=== PATIENT | female | born 1990 | race Two or more races ===

== ENCOUNTER 2024-11-24 15:12 | Outpatient (AMB) | payer MEDICAID, SELFPAY ==
[2024-11-24 15:41] VITALS: BP 129/83; PULSE 93; RESP 17; TEMP 36.7; O2SAT 98; BMI 34.7
--- NOTE | 2024-11-24 15:41 | OBCLNT_ITS ---
Vital Signs 11/24/24 15:41 Height 1.65 m Height Method Measured Weight 94.858 kg Weight Measurement Method Standing Scale BMI 34.7 BP 129/83 Blood Pressure Source Automatic Cuff Blood Pressure Location Right Upper Arm Position Sitting Respiration 17 Pulse 93 Pulse Source Monitor Temp 98.1 F Temp Source Temporal Artery Scan Pulse Oximetry (%) 98 Oxygen Delivery Method Room Air Allergies/Home Meds Allergies & Medications Allergies No Known Allergies Allergy (Verified 11/24/24 15:42) Medication Reconciliation No Known Home Medications 11/24/24 [History Confirmed 11/24/24] Intake Visit Data Collection New Patient or Established: New Patient (never been to [facility]) Reason for Visit:: OBI Consent obtained for Telemed Visit: No Seen by Clinical Staff ONLY (RN/MA): No Radio News Anchor Required: No Do You Feel Safe at Home: Yes Authorities Contacted: N/A PCP or OBGYN visit in last 3 months: No Hx Now: Yes Are you currently on any form of Control: No Last menstrual period: 06/27/24 Pain Present Currently: Yes Pain Location: Head Pain scale:: 4 Smoking Status Smoking Status: Never smoker Questionnaires Covid-19 Vaccine Questionnaire Has patient been vacinated for Covid-19 Have you been vacinated for Covid-19: No PHQ-9 PHQ-2 Over the last 2 weeks, how often have you been bothered by any of the following problems? 1. Little interest or pleasure in doing things: not at all 2. Feeling down, depressed, or hopeless: not at all Total score: 0 PHQ-9 3. Trouble falling or staying asleep, or sleeping too much: Not at all 4. Feeling tired or having little energy: Not at all 5. Poor appetite or overeating: Not at all 6. Feeling bad about yourself - or that you are a failure or have let yourself or your family down: Not at all 7. Trouble concentrating on things, such as reading the newspaper or watching television: Not at all 8. Moving or speaking so slowly that other people could have noticed? - Or the opposite - being so fidgety or restless that you have been moving around a lot more than usual: not at all 9. Thoughts that you would be better off or of hurting yourself in some way: Not at all Total score: 0 If you checked off any problems, how difficult have these problems made it for you to do your work, take care of things at home, or get along with other people?: not difficult at all Source: Developed by Drs. Biju Monson, Jessica Bear, Mika Muñiz and colleagues, with an educational nina from [employer]. Social History Living Situation History Marital Status: Life Partner Lives With: Children Housing: House Tobacco History Smoking Status: Never smoker Alcohol History Alcohol Intake: Never Domestic Abuse History Do You Feel Safe at Home: Yes History of Present Illness HPI Narrative 33-year-old 6 para 3 for OBI. Patient's last period is 2024. Her due date based on LMP April 03, 2025. Patient has poor dates. Patient also reports that the clinic in [place] had given her a different due date. There is no ultrasound available. And no documentation in the chart of an ultrasound that was done. Labs were done. Patient is GC and Chlamydia negative. She had a UTI and a yeast infection both were treated early on. Hepatitis B negative, RPR nonreactive, rubella immune, HIV negative, O+, antibody screen negative, her platelets were 273. Her H&H was 12 and 37. Her cystic fibrosis screen was negative NIPT were negative. aFP was not done. Patient denies social habits. Denies existence of chronic illness. Patient had a tummy tuck. Previous GDM last . Patient had a 1 hour that was 93. A1c was 5.3 OB Initial Visit OB Flowsheet OB Flowsheet Initial Weight: Not Recorded Date -?-?-?-?-?-?-?-?-?-?-?-?- EGA Weight BP Alb Glu CTX Pres Fundal ht FHR Mov Dilation Station Effacement Hx Notes Visit Note 11/24/24 -?-?-?-?-?-?-?-?-?-?-?-?- 21w 3d 94.858 kg 129/83 absent unknown 22 154 active 33-year-old 6 para 3 for OBI. Patient has poor dates. She thinks her last period was from 12/25/2024. And this gives a due date April 03, 2025. Patient has been to a doctor in [place], no results. And then in [place]. Patient was given different dates both places no ultrasounds available. Labs were done and they are normal patient reports good movement. Denies any signs of labor. Denies bleeding, contractions, no leaking.History of tummy tuck Schedule M appointment today. Reviewed labs and chart with patient. Increase fluids. Continue vitamins. Return in 4 weeks OB check Menstrual History Menstrual reliability: definite Flow: normal Menstrual regularity: regular Monthly: Yes Age at menarche: 10 On control pills at conception: No Date of positive home test: 07/12/24 OB History : 6 Para: 3 Hx # Pregnancies: 1 Hx Total # of Abortions (Spontaneous & Elective): 2 # of Living Children: 3 Delivery History 1st : Child's name: BAY date: 09/06/03 sex: female Gestational age at delivery (weeks): 38 Delivery type: vaginal weight (lbs): 4082.331 g History of depression before or after : No 2nd : Child's name: DEE date: 02/01/09 sex: male Gestational age at delivery (weeks): 40 Delivery type: vaginal weight (lbs): 3628.739 g History of depression before or after : No 3rd : Child's name: MARGARET date: 10/25/14 sex: female Gestational age at delivery (weeks): 40 Delivery type: vaginal weight (lbs): 3628.739 g History of depression before or after : No Infection History & Risk Evaluation History of STDs: none HIV risk evaluation: low risk Hepatitis B risk evaluation: low risk Patient or partner has history of Genital Herpes: No Genetic Screening & History Genetic Screening/Teratology Counseling - Includes patient, baby's father, or anyone in either family with: 1. Patient's age 35 years or older as of estimated date of delivery: Yes 2. Thalassemia (English, Bahamian, Mediterranean, or Background); MCV less than 80: No 3. Neural Tube Defect (Meningomyelocele, Spina Bifida, or Anencephaly): No 4. Congenital Heart Defect: No 5. Down Syndrome: No 6. Virgilio-Sachs (Ashkenazi Orthodoxy, Cajun, Maldivian Hooker): No 7. Rodger Disease (Ashkenazi Orthodoxy): No 8. Familial Dysautonomia (Ashkenazi Orthodoxy): No 9. Sickle Cell Disease or Trait (): No 10. Hemophilia or other blood disorders: No 11. Muscular Dystrophy: No 12. Cystic Fibrosis: No 13. [place]'s Chorea: No 14. Mental Retardation/Autism: No 15. Other inherited genetic or chromosomal disorder: No 16. Maternal Metabolic Disorder (EG,TYPE 1 Diabetes, PKU): No 17. Patient or baby's father had a child with defects not listed above: No 18. Recurrent loss or a stillbirth: No 19. Medications (including supplements, vitamins, herbs or otc drugs)/illicit/recreational drugs/alcohol since last menstrual period: No 20. Any other: No Infection History 1. Live with someone with TB or exposed to TB: No 2. Rash or viral illness since last menstrual period: No 3. Hepatitis B,C: No Other (see comments) Source: [employer] Review of Systems Review of Systems Systems Reviewed: All systems reviewed, normal except as documented Exam General Limitations: no limitations General Appearance: alert, in no apparent distress, comfortable, cooperative, healthy appearing, well developed and well groomed Head Head exam: atraumatic, normocephalic and normal inspection Chest Chest inspection: Present normal inspection and symmetric chest wall rise Resp Respiratory exam: Present normal lung sounds bilaterally Card Cardiovascular exam: Present regular rate, normal rhythm and normal heart sounds Abdominal Abdominal exam: Present soft and normal bowel sounds Psych Psychiatric exam: Present normal affect and normal mood Office Procedures OB Clinic LOC & Office Proc's Nursing/Assessment Patient Status: Initial/New Patient OB Clinic Nursing Assessment: Medication Reconciliation, Update PMH in EMR and Vital Signs OB Clinic Coordination of Care: Complex Care and Chronic Disease 1-5, Consent,records obtained, informed consent, Education Simp Pt/Fam and 4+ Authorizations needed Special Needs: Heart tones New Patient Charge New Patient Point Assignment: [id number] New Patient Point Charge: MANAGER COSMETIC Level 4 ([id number]) Assessment & Plan Diagnosis / Problem List (1) Advanced maternal age (AMA) in : Status: Acute (2) Encounter for supervision of high risk in third trimester, antepartum: Status: Acute Additional Plan Schedule ultrasound with with MFM for dates and because of AMA. Discussed labs and dates with patient. Discussed labor precautions. Increase fluids. Continue vitamins. Advised patient to start GDM diet. And increase exercise. Return in 4 weeks OB check Follow Up: 4 Weeks (obc)
== END 2024-11-24 15:57 | disposition home or self-care (01) ==
LOC: HODSOBC 15:12
PROVIDERS: PCP Advanced Practice Midwife; Referring Provider Advanced Practice Midwife; Supervising Provider Advanced Practice Midwife; Visit Provider Advanced Practice Midwife
DX: O09.522 Supervision of elderly multigravida, second trimester (principal); O09.292 Supervision of pregnancy with other poor reproductive or obstetric history, second trimester; O26.842 Uterine size-date discrepancy, second trimester; O09.212 Supervision of pregnancy with history of pre-term labor, second trimester; Z87.59 Personal history of other complications of pregnancy, childbirth and the puerperium; Z3A.21 21 weeks gestation of pregnancy
CPT/HCPCS: 99204; G0463

== ENCOUNTER 2024-12-23 15:16 | Outpatient (AMB) | payer MEDICAID, SELFPAY ==
[2024-12-23 15:22] VITALS: BP 118/77; PULSE 98; RESP 7; TEMP 36.5; O2SAT 97; BMI 35.2
--- NOTE | 2024-12-23 15:22 | OBCLNT_ITS ---
Vital Signs 12/23/24 15:22 Height 1.65 m Height Method Measured Weight 95.821 kg Weight Measurement Method Standing Scale BMI 35.2 BP 118/77 Blood Pressure Source Automatic Cuff Blood Pressure Location Right Upper Arm Position Sitting Respiration 7 L Pulse 98 Pulse Source Monitor Temp 97.7 F Temp Source Temporal Artery Scan Pulse Oximetry (%) 97 Oxygen Delivery Method Room Air Allergies/Home Meds Allergies & Medications Allergies No Known Allergies Allergy (Verified 12/23/24 15:23) Medication Reconciliation No Known Home Medications 11/24/24 [History Confirmed 12/23/24] Intake Visit Data Collection New Patient or Established: Established Patient (seen at [facility] within 3 years) Reason for Visit:: OBC Consent obtained for Telemed Visit: No Seen by Clinical Staff ONLY (RN/MA): No Director Traffic And Planning Required: No Do You Feel Safe at Home: Yes Authorities Contacted: N/A PCP or OBGYN visit in last 3 months: Yes Date of Last PCP or OBGYN visit: 11/24/24 Hx Now: Yes Are you currently on any form of Control: No Pain Present Currently: No Pain Scale Used: Wood-Penn/Numerical Pain scale:: 0 Smoking Status Smoking Status: Never smoker Questionnaires Covid-19 Vaccine Questionnaire Has patient been vacinated for Covid-19 Have you been vacinated for Covid-19: No PHQ-9 PHQ-2 Over the last 2 weeks, how often have you been bothered by any of the following problems? 1. Little interest or pleasure in doing things: not at all PHQ-9 8. Moving or speaking so slowly that other people could have noticed? - Or the opposite - being so fidgety or restless that you have been moving around a lot more than usual: not at all Source: Developed by Drs. Biju Monson, Jessica Bear, Mika Muñiz and colleagues, with an educational nina from [employer]. Social History Living Situation History Lives With: Children Housing: House Tobacco History Smoking Status: Never smoker Alcohol History Alcohol Intake: Never Domestic Abuse History Do You Feel Safe at Home: Yes Care OB Visit Log OB Flowsheet Initial Weight: Not Recorded Date -?-?-?-?-?-?-?-?-?-?-?-?- EGA Weight BP Alb Glu CTX Pres Fundal ht FHR Mov Dilation Station Effacement Hx Notes Visit Note 11/24/24 -?-?-?-?-?-?-?-?-?-?-?-?- 21w 3d 94.858 kg 129/83 absent unknown 22 154 active 33-year-old 6 para 3 for OBI. Patient has poor dates. She thinks her last period was from 12/25/2024. And this gives a due date April 03, 2025. Patient has been to a doctor in [place], no results. And then in [place]. Patient was given different dates both places no ultrasounds available. Labs were done and they are normal patient reports good movement. Denies any signs of labor. Denies bleeding, contractions, no leaking.History of dwight motley Schedule MFM appointment today. Reviewed labs and chart with patient. Increase fluids. Continue vitamins. Return in 4 weeks OB check 12/23/24 -?-?-?-?-?-?-?-?-?-?-?-?- 25w 4d 95.821 kg 118/77 absent unknown 24 145 active Reports good movement. Denies any leaking, bleeding, contractions. 3rd tri lab, discuss ptl precaution, f/u mfm referral, 3rd tri lab, discuss ptl pre caution, f/u mfm referral, rtc 4 week obc . pt referred to [facility]RREZ[facility] Calculator Estimated Delivery Date Method Current WG Current Estimate 04/03/25 LMP (Uncertain) 25w 4d Notes Visit Date: 11/24/24 Last Updated by: Lo Matta, YAZM 33 yo lmp 06/27/24. EDC: 04/03/25. Poor dates. GC/CT-, + yeast/treated, UTI/Ecoli [place], RPR::NR, TSH wnl, HBSAG-, rub imm, O+/abs-, HIV-, HC-, CF-,NIPT-/girl,pap-,UT-, Office Procedures OB Clinic LOC & Office Proc's Nursing/Assessment Patient Status: Established Patient OB Clinic Nursing Assessment: Medication Reconciliation, Update PMH in EMR and Vital Signs OB Clinic Coordination of Care: Complex Care and Chronic Disease 1-5, Consent,records obtained, informed consent and Education Simp Pt/Fam Special Needs: Heart tones Established Patient Charge Established Patient Point Assignment: 105 Established Patient Point Charge: EP Level 3 (80-115) Assessment & Plan Diagnosis / Problem List (1) Encounter for supervision of high risk in second trimester, antepartum: Status: Acute (2) Advanced maternal age (AMA) in : Status: Acute Plan 3rd trimester lab today, f/u on MFM pending sono, discuss ptl precaution, continue pnv, fluids, rtc 4 week OBC Additional Plan Follow Up: 4 Weeks (obc)
== END 2024-12-23 15:48 | disposition home or self-care (01) ==
LOC: HODSOBC 15:16
PROVIDERS: Supervising Provider Advanced Practice Midwife; Visit Provider Advanced Practice Midwife
DX: O09.522 Supervision of elderly multigravida, second trimester (principal); Z3A.25 25 weeks gestation of pregnancy
CPT/HCPCS: 99213; G0463

== ENCOUNTER 2025-01-12 14:55 | Outpatient (AMB) | payer MEDICAID, SELFPAY ==
[2025-01-12 15:03] VITALS: BP 136/85; PULSE 97; RESP 16; TEMP 36.2; O2SAT 98; BMI 35.4
--- NOTE | 2025-01-12 15:03 | AMB.OBVISIT ---
Vital Signs 01/12/25 15:03 Height 1.65 m Height Method Stated Weight 96.615 kg Weight Measurement Method Standing Scale BMI 35.4 BP 136/85 H Blood Pressure Source Automatic Cuff Blood Pressure Location Left Upper Arm Position Right Lateral Respiration 16 Pulse 97 Pulse Source Monitor Temp 97.2 F Temp Source Oral Pulse Oximetry (%) 98 Oxygen Delivery Method Room Air Allergies/Home Meds Allergies & Medications Allergies No Known Allergies Allergy (Verified 01/12/25 15:06) Medication Reconciliation No Known Home Medications 11/24/24 [History Confirmed 01/12/25] Intake Visit Data Collection New Patient or Established: Established Patient (seen at [facility] within 3 years) Reason for Visit:: OBC Seen by Clinical Staff ONLY (RN/MA): No Strip Cutting Machine Operator Required: No Do You Feel Safe at Home: Yes Authorities Contacted: N/A PCP or OBGYN visit in last 3 months: Yes Date of Last PCP or OBGYN visit: 12/23/24 Hx Now: Yes Are you currently on any form of Control: No Pain Present Currently: No Pain Scale Used: Wood-Penn/Numerical Pain scale:: 0 Smoking Status Smoking Status: Never smoker Questionnaires Covid-19 Vaccine Questionnaire Has patient been vacinated for Covid-19 Have you been vacinated for Covid-19: Yes PHQ-9 PHQ-2 Over the last 2 weeks, how often have you been bothered by any of the following problems? 1. Little interest or pleasure in doing things: not at all 2. Feeling down, depressed, or hopeless: not at all Total score: 0 PHQ-9 3. Trouble falling or staying asleep, or sleeping too much: Not at all 4. Feeling tired or having little energy: Not at all 5. Poor appetite or overeating: Not at all 6. Feeling bad about yourself - or that you are a failure or have let yourself or your family down: Not at all 7. Trouble concentrating on things, such as reading the newspaper or watching television: Not at all 8. Moving or speaking so slowly that other people could have noticed? - Or the opposite - being so fidgety or restless that you have been moving around a lot more than usual: not at all 9. Thoughts that you would be better off or of hurting yourself in some way: Not at all Total score: 0 If you checked off any problems, how difficult have these problems made it for you to do your work, take care of things at home, or get along with other people?: not difficult at all Source: Developed by Drs. Biju Monson, Jessica Bear, Mika Muñiz and colleagues, with an educational nina from [employer]. Depression screen completed yes Social History Living Situation History Lives With: Children Housing: House Tobacco History Smoking Status: Never smoker Second Hand Smoke Exposure: No Alcohol History Alcohol Intake: Never Domestic Abuse History Do You Feel Safe at Home: Yes Care OB Visit Log OB Flowsheet Initial Weight: Not Recorded Date <del>?</del> EGA Weight BP Alb Glu CTX Pres Fundal ht FHR Mov Dilation Station Effacement Hx Notes Visit Note 11/24/24 <del>?</del> 21w 3d 94.858 kg 129/83 absent unknown 22 154 active 33-year-old 6 para 3 for OBI. Patient has poor dates. She thinks her last period was from 12/25/2024. And this gives a due date April 03, 2025. Patient has been to a doctor in [place], no results. And then in [place]. Patient was given different dates both places no ultrasounds available. Labs were done and they are normal patient reports good movement. Denies any signs of labor. Denies bleeding, contractions, no leaking.History of dwight tuck Schedule MFM appointment today. Reviewed labs and chart with patient. Increase fluids. Continue vitamins. Return in 4 weeks OB check 12/23/24 <del>?</del> 25w 4d 95.821 kg 118/77 absent unknown 24 145 active Reports good movement. Denies any leaking, bleeding, contractions. 3rd tri lab, discuss ptl precaution, f/u mfm referral, 3rd tri lab, discuss ptl precaution, f/u mfm referral, rtc 4 week obc . pt referred to [facility] 01/12/25 <del>?</del> 28w 3d 96.615 kg 136/85 absent unknown 28 145 active Reports good movement. Denies leaking, bleeding, contractions. No OB discomforts at this time. Follow-up maternal- medicine scheduled for January 20 Discussed elevated 1 hour GTT. 3-hour GTT today. Discussed diet and weight gain,. Walk 40 minutes a day. labor precautions reviewed. Increase fluids. Return in 3 weeks OB check. Patient has MFM appointment January 20 SARAI Calculator Estimated Delivery Date Method Current WG Current Estimate 04/03/25 LMP (Uncertain) 28w 3d Notes Visit Date: 01/12/25 Last Updated by: Lo Matta CNM 01/12: 1 hr gtt: 168, A1c: 5.6, rpr;;nr, Visit Date: 11/24/24 Last Updated by: Lo Matta CNM 33 yo lmp 06/27/24. EDC: 04/03/25. Poor dates. GC/CT-, + yeast/treated, UTI/Ecoli [place], RPR::NR, TSH wnl, HBSAG-, rub imm, O+/abs-, HIV-, HC-, CF-,NIPT-/girl,pap-,[place]-, Office Procedures OB Clinic LOC & Office Proc's Nursing/Assessment Patient Status: Established Patient OB Clinic Nursing Assessment: Update PMH in EMR and Vital Signs OB Clinic Coordination of Care: Education Complex Pt/Fam, Consent,records obtained, informed consent, Lab and Imaging orders, Results/Orders obtained and Staff clarify orders Special Needs: Heart tones Established Patient Charge Established Patient Point Assignment: 110 Established Patient Point Charge: EP Level 3 (80-115) Assessment & Plan Diagnosis / Problem List (1) Encounter for supervision of high risk in second trimester, antepartum: Status: Acute (2) Advanced maternal age (AMA) in : Status: Acute Plan 3-hour GTT. Discussed diet and weight gain. Walk 40 minutes a day. Increase fluids. Discussed labor precautions. Patient has an ultrasound with Dr. Hermosillo scheduled for January 20, 2025. Increase fluids and return in 3 weeks for recheck Additional Plan Follow Up: 3 Weeks (obc)
== END 2025-01-12 15:39 | disposition home or self-care (01) ==
LOC: HODSOBC 14:55
PROVIDERS: Supervising Provider Advanced Practice Midwife; Visit Provider Advanced Practice Midwife
DX: O09.523 Supervision of elderly multigravida, third trimester (principal); Z3A.28 28 weeks gestation of pregnancy
CPT/HCPCS: 99213; G0463

== ENCOUNTER 2025-02-02 14:40 | Outpatient (AMB) | payer MEDICAID, SELFPAY ==
[2025-02-02 14:51] VITALS: BP 128/86; PULSE 81; RESP 16; TEMP 36.6; O2SAT 98; BMI 36.8
--- NOTE | 2025-02-02 14:51 | AMB.OBVISIT ---
Vital Signs 02/02/25 14:51 Height 1.65 m Height Method Stated Weight 100.301 kg Weight Measurement Method Standing Scale BMI 36.8 BP 128/86 H Blood Pressure Source Automatic Cuff Blood Pressure Location Left Upper Arm Position Sitting Respiration 16 Pulse 81 Pulse Source Monitor Temp 97.8 F Temp Source Oral Pulse Oximetry (%) 98 Oxygen Delivery Method Room Air Allergies/Home Meds Allergies & Medications Allergies No Known Allergies Allergy (Verified 02/02/25 14:53) Medication Reconciliation blood sugar diagnostic (Blood Glucose Test strips) #10 ea 02/02/25 [Rx] blood sugar diagnostic (Blood Glucose Test strips) #50 ea 02/02/25 [Rx] blood-glucose meter #1 ea 02/02/25 [Rx] lancets #100 ea 02/02/25 [Rx] lancets #100 ea 02/02/25 [Rx] Intake Visit Data Collection New Patient or Established: Established Patient (seen at [facility] within 3 years) Reason for Visit:: CARE Seen by Clinical Staff ONLY (RN/MA): No Radiologic Electronic Specialist Required: No Do You Feel Safe at Home: Yes Authorities Contacted: N/A PCP or OBGYN visit in last 3 months: Yes Hx Now: Yes Are you currently on any form of Control: No Pain Present Currently: No Pain Scale Used: Wood-Penn/Numerical Pain scale:: 0 Smoking Status Smoking Status: Never smoker Questionnaires Covid-19 Vaccine Questionnaire Has patient been vacinated for Covid-19 Have you been vacinated for Covid-19: No PHQ-9 PHQ-2 Over the last 2 weeks, how often have you been bothered by any of the following problems? 1. Little interest or pleasure in doing things: not at all 2. Feeling down, depressed, or hopeless: not at all Total score: 0 PHQ-9 3. Trouble falling or staying asleep, or sleeping too much: Not at all 4. Feeling tired or having little energy: Not at all 5. Poor appetite or overeating: Not at all 6. Feeling bad about yourself - or that you are a failure or have let yourself or your family down: Not at all 7. Trouble concentrating on things, such as reading the newspaper or watching television: Not at all 8. Moving or speaking so slowly that other people could have noticed? - Or the opposite - being so fidgety or restless that you have been moving around a lot more than usual: not at all 9. Thoughts that you would be better off or of hurting yourself in some way: Not at all Total score: 0 Source: Developed by Drs. Biju Monson, Jessica Bear, Mika Muñiz and colleagues, with an educational nina from [employer]. Depression screen completed yes Social History Living Situation History Lives With: Children Housing: House Tobacco History Smoking Status: Never smoker Second Hand Smoke Exposure: No Alcohol History Alcohol Intake: Never Domestic Abuse History Do You Feel Safe at Home: Yes Care OB Visit Log OB Flowsheet Initial Weight: Not Recorded Date <del>?</del> EGA Weight BP Alb Glu CTX Pres Fundal ht FHR Mov Dilation Station Effacement Hx Notes Visit Note 11/24/24 <del>?</del> 21w 3d 94.858 kg 129/83 absent unknown 22 154 active 33-year-old 6 para 3 for OBI. Patient has poor dates. She thinks her last period was from 12/25/2024. And this gives a due date April 03, 2025. Patient has been to a doctor in [place], no results. And then in [place]. Patient was given different dates both places no ultrasounds available. Labs were done and they are normal patient reports good movement. Denies any signs of labor. Denies bleeding, contractions, no leaking.History of tumcorazon anthonyck Schedule MFM appointment today. Reviewed labs and chart with patient. Increase fluids. Continue vitamins. Return in 4 weeks OB check 12/23/24 <del>?</del> 25w 4d 95.821 kg 118/77 absent unknown 24 145 active Reports good movement. Denies any leaking, bleeding, contractions. 3rd tri lab, discuss ptl precaution, f/u mfm referral, 3rd tri lab, discuss ptl precaution, f/u mfm referral, rtc 4 week obc . pt referred to [facility] 01/12/25 <del>?</del> 28w 3d 96.615 kg 136/85 absent unknown 28 145 active Reports good movement. Denies leaking, bleeding, contractions. No OB discomforts at this time. Follow-up maternal- medicine scheduled for January 20 Discussed elevated 1 hour GTT. 3-hour GTT today. Discussed diet and weight gain,. Walk 40 minutes a day. labor precautions reviewed. Increase fluids. Return in 3 weeks OB check. Patient has M appointment January 20 02/02/25 <del>?</del> 31w 3d 100.301 kg 128/86 absent cephalic 31 145 active Fetus active. Denies contractions. Denies leaking. Denies bleeding. Patient had a abnormal 1 hour GTT. And her 3-hour is also elevated. The fasting was normal and then the 1 in 2-hour high. Patient has a follow-up maternal- medicine sono in February Ordered glucometer lancets and test strips. I reviewed GDM diet with patient. And reviewed logging her glucose results. Walk 40 minutes a day. Schedule weekly NST BPP for AMA and GDM. Discussed ultrasound with patient. The baby is growing in the 99th percentile. Increase fluids. Kick count twice a day. Return in 2 weeks for OB check Ordered glucometer lancets and test strips. I reviewed GDM diet with patient. And reviewed logging her glucose results. Walk 40 minutes a day. Schedule weekly NST BPP for AMA and GDM. Discussed ultrasound with patient. The baby is growing in the 99th percentile. Increase fluids. Kick count twice a day. Return in 2 weeks for OB check. TDAP [place] SARAI Calculator Estimated Delivery Date Method Current WG Current Estimate 04/03/25 Ultrasound #1 31w 3d Other Estimates 04/03/25 LMP (Uncertain) 31w 3d 04/03/25 Manual 31w 3d final sarai 04/03/25 Notes Visit Date: 02/02/25 Last Updated by: Lo Matta CNM 3 hr gtt: 1hr and 2 hr high. sono . EFW 99%, GDM diet Visit Date: 01/12/25 Last Updated by: Lo Matta CNM 01/12: 1 hr gtt: 168, A1c: 5.6, rpr;;nr, Visit Date: 11/24/24 Last Updated by: Lo Matta, CNM 33 yo lmp 06/27/24. EDC: 04/03/25. Poor dates. GC/CT-, + yeast/treated, UTI/Ecoli TX, RPR::NR, TSH wnl, HBSAG-, rub imm, O+/abs-, HIV-, HC-, CF-,NIPT-/girl,pap-,UT-, Office Procedures OBC Clinic LOC & Office Proc's Nursing/Assessment Patient Status: Established Patient OB Clinic Nursing Assessment: Medication Reconciliation, Update PMH in EMR and Vital Signs OB Clinic Coordination of Care: AMA, Complex Care and Chronic Disease 1-5, Consent,records obtained, informed consent, Education Simp Pt/Fam, 1 Ins Authorization, Lab and Imaging orders, Results/Orders obtained and Staff clarify orders Special Needs: Heart tones Established Patient Charge Established Patient Point Assignment: 170 Established Patient Point Charge: EP Level 5 (160-above) Assessment & Plan Diagnosis / Problem List (1) Encounter for supervision of high risk in third trimester, antepartum: Status: Acute (2) Diet controlled gestational diabetes mellitus (GDM) in third trimester: Status: Acute Plan Discussed 3-hour GTT. I ordered lancets, meter, test strips to the pharmacy. Reviewed GDM diet with patient. Discussed testing 4 times a day and I also discussed the parameters for normal. Patient to walk 40 minutes a day. I scheduled weekly NST BPP. Discussed kick count twice a day. Continue prenatals. Increase fluids. Return in 2 weeks OB check Additional Plan Follow Up: 2 Weeks (obc/TDAP)
== END 2025-02-02 15:20 | disposition home or self-care (01) ==
LOC: HODSOBC 14:40
PROVIDERS: Supervising Provider Advanced Practice Midwife; Visit Provider Advanced Practice Midwife
DX: O09.523 Supervision of elderly multigravida, third trimester (principal); O09.893 Supervision of other high risk pregnancies, third trimester; O24.410 Gestational diabetes mellitus in pregnancy, diet controlled; Z3A.31 31 weeks gestation of pregnancy
CPT/HCPCS: 99215; G0463

== ENCOUNTER 2025-02-02 15:43 | Observation (INO) | payer MEDICAID, SELFPAY ==
--- NOTE | 2025-02-02 15:35 | XR_ITS ---
Examination: Complete OB ultrasound greater than 14 weeks Date and time of exam: February 02, 2025, 1708 hrs. Indications: Onset vaginal bleeding today Findings: Viable intrauterine single fetus with single amniotic sac presentation cephalic Cardiac motion 144 BPM Placenta fundal posterior grade 2 Umbilical cord insertion seen Amniotic fluid index 6.1 cm Cervix 4.4 cm Ovaries obscured by the fetus. Composite estimated gestational age based on BPD, head circumference, abdominal circumference, femur length is 35 weeks 1 day Estimated weight 2621.3 g. Survey of intracranial anatomy, spinal anatomy, abdominal anatomy, four-chamber heart performed with no abnormalities identified. Impression: Viable intrauterine gestation cephalic presentation.
--- NOTE | 2025-02-02 15:35 | XR_ITS ---
Examination: Biophysical profile, ultrasound Date and time of exam: February 02, 2025, 1722 hrs. Indications: Labor evaluation today, vaginal bleeding Technique: Multiple transabdominal sonographic images of the pelvis abdomen obtained. Attention is directed to the breathing movement, gross body movement, amniotic fluid volume and tone. Findings: Amniotic fluid index 6.5 cm Total biophysical profile is 8 of 8. breathing movement is 2. Gross body movement is 2. tone is 2. Qualitative amniotic fluid volume is 2 Impression: Biophysical profile is 8 of 8.
[2025-02-02 16:05] VITALS: BP 135/86; PULSE 80; RESP 16; RESP 98; TEMP 36.8; BMI 36.6
[2025-02-02 16:07] VITALS: BP 135/86; PULSE 80
[2025-02-02 17:39] VITALS: BP 161/75; PULSE 79
[2025-02-02 17:41] VITALS: BP 124/59; PULSE 84
[2025-02-02 18:13] VITALS: BP 127/60; PULSE 91
== END 2025-02-02 18:45 | disposition home or self-care (01) ==
PROVIDERS: Admitting Provider Obstetrics & Gynecology; PCP Family Medicine; Visit Provider Obstetrics & Gynecology
DX: O46.93 Antepartum hemorrhage, unspecified, third trimester (principal); Z3A.35 35 weeks gestation of pregnancy
CPT/HCPCS: 59025; 59899; 76805; 76819

== ENCOUNTER 2025-02-06 19:22 | Observation (INO) | payer MEDICAID, SELFPAY ==
[2025-02-06] VITALS (18 sets, daily range): BP systolic 120–144; BP diastolic 55–107; PULSE 79–99; RESP 18–99; TEMP 37; O2SAT 96–99; BMI 38.7
[2025-02-06 20:16] LABS: Collection Type, Urine Clean Catch
[2025-02-06 20:25] LABS: Amorphous Crystals,Urine Present (Absent); Bacteria,Urine 4+; Bilirubin,Urine Negative (Negative); Blood,Urine 2+ (Negative); Clarity,Urine Clear (Clear/Hazy); Color,Urine Lt-Yellow (Lt Yel-Yel); Glucose, Urine Negative (Negative); Ketones,Urine Negative (Negative); Leukocyte Esterase,Urine Positive (Negative); Nitrite,Urine Negative (Negative); PH,Urine 7.0 (5.0-7.0); Protein,Urine Trace (Neg - Trace); RBC,Urine 63 /hpf (0-3); Specific Gravity,Urine 1.016 (1.001-1.035); Squamous Epithelial Cell,Urine 2 /hpf (0-5); Urobilinogen,Urine Negative mg/dL (0.0-1.0); WBC,Urine 3 /hpf (0-5)
--- NOTE | 2025-02-07 00:03 | PD.LDPN ---
Documentation for date of: 02/07/25 OB Labor Progress Note Pelvic Exam Amniotic membrane status: Intact Contractions Monitor mode: External Contraction frequency: 0 Contraction intensity: Mild Status status: Category l Assessment and Plan Comments: Triage Note Lucina is a 34yo with SIUP at 32&1wk presenting to L&D for concerns that her UTI medicine isn't working. She notes that when she voids, it is bloody. She was prescribed macrobid by NAYANA Matta, but has only been taking it once daily (she was confused regarding the instructions). She notes no painful/regular ctx, no vaginal bleeding, no loss of fluid. Normal movement. PMhx/PNC significant for: -AMA -Current BMI 38.7 -A1GDM -UTI ROS negative other than what was described above. Vitals wnl, afebrile General: well developed, well nourished, no acute distress, conversant Cardiac: normal heart rate Lungs: breathing without distress Abdomen: soft, gravid, non-tender, no rebound or guarding Extremities: no edema BLE NST: Reactive, +accels, no decels, mod [place]: no regular ctx pattern Labs: Urinalysis shows 63 RBC, 3 WBC, 4+ bacteria, +LE, 2 squam Assessment: Lucina is a 34yo with SIUP at 32&1wk with hematuria related to inadequately treated UTI. Reassuring assessment. Vitals wnl, benign exam. Plan: -Rx keflex 500mg PO QID x 7 days sent to pharmacy. Take abx as prescribed and the full course. -Urine culture ordered, pending. Patient instructed to discuss result with NAYANA Matta at next follow up visit. -Follow up at routine OB visit as scheduled -Discussed return precautions including those for sx concerning for pyelonephritis. Verónica Martinez MD
== END 2025-02-06 21:08 | disposition home or self-care (01) ==
LOC: S4SX 20:50 → S4NX 21:08
PROVIDERS: Admitting Provider Obstetrics & Gynecology; Visit Provider Advanced Practice Midwife
DX: O23.43 Unspecified infection of urinary tract in pregnancy, third trimester (principal); N39.0 Urinary tract infection, site not specified; Z3A.32 32 weeks gestation of pregnancy
CPT/HCPCS: 59899; 81001; 87077; 87086; 87186

== ENCOUNTER 2025-02-18 15:17 | Outpatient (RCR) | payer MEDICAID, SELFPAY ==
--- NOTE | 2025-02-11 15:47 | XR_ITS ---
EXAMINATION: Biophysical profile Date and time: February 11, 2025, 1553 hours INDICATIONS: Diagnosis advanced maternal age, diagnosis gestational diabetes TECHNIQUE AND FINDINGS: Assessment body movement breathing motion and tone and JESUSITA obtained Body movement 2, breathing movements 2 tone 2 JESUSITA 2 Amniotic fluid index 19.4 cm IMPRESSION: Biophysical profile 8 of 8
[2025-02-11 16:33] VITALS: BP 126/84; PULSE 97; RESP 16; TEMP 36.7
--- NOTE | 2025-02-18 15:34 | XR_ITS ---
Examination: Biophysical profile, ultrasound Date and time of exam: February 18, 2025 1538 hours INDICATIONS: Diagnosis advanced maternal age, diagnosis gestational diabetes Technique: Multiple transabdominal sonographic images of the pelvis abdomen obtained. Attention is directed to the breathing movement, gross body movement, amniotic fluid volume and tone. Findings: Amniotic fluid index 11.2 cm Total biophysical profile is 8 of 8. breathing movement is 2. Gross body movement is 2. tone is 2. Qualitative amniotic fluid volume is 2 Impression: Biophysical profile is 8 of 8.
[2025-02-18 16:13] VITALS: BP 143/89; PULSE 95; RESP 20
== END 2025-02-18 23:59 | disposition home or self-care (01) ==
LOC: S4S1 15:17
PROVIDERS: PCP Family Medicine; Referring Provider Advanced Practice Midwife; Visit Provider Advanced Practice Midwife
DX: O24.410 Gestational diabetes mellitus in pregnancy, diet controlled (principal); O09.93 Supervision of high risk pregnancy, unspecified, third trimester; Z3A.34 34 weeks gestation of pregnancy
CPT/HCPCS: 59025; 76819

== ENCOUNTER 2025-02-18 17:55 | Inpatient (IN) | payer MEDICAID, SELFPAY ==
[2025-02-18] VITALS (54 sets, daily range): BP systolic 0–195; BP diastolic 0–93; PULSE 79–100; RESP 16; TEMP 36.9; O2SAT 98–100; BMI 38.6
--- NOTE | 2025-02-18 18:43 | PD.LDHP ---
Documentation for date of: 02/18/25 OB Labor/Induct. HPI History of Present Illness Chief complaint: elevated BP during NST/BPP : 6 Term pregnancies: 3 pregnancies: 0 Living children: 3 History of Abortions: Spontaneous and Elective: 2 History of sections: No History of : No SARAI: 04/03/25 Gestational Age (weeks): 34 Gestational Age (days): 1 History of present illness: plan observation and evaluation for preeclampsia in 34 years old at 34.1 weeks with GDM diet controlled , no headache or blurry vision or epigastric pain NST is reactive and BPP is 8/8 today History of Present Adequate Care: Yes Obstetrical complications: gestational diabetes and other (advanced maternal age ) Review of Systems Review of Systems Systems Reviewed: All systems reviewed, normal except as documented Past Medical History Surgical History SURGICAL: Negative Section Social History SMOKING STATUS: Never smoker SECOND HAND EXPOSURE: No Meds Home Medications and Allergies Home Medications ?Medication ?Instructions ?Recorded ?Confirmed ?Type vits no.126-ferrous fum 1 tab PO QDAY 02/02/25 02/06/25 History 28 mg iron-folic acid 800 mcg tablet (Classic ) Allergies Allergy/AdvReac Type Severity Reaction Status Date / Time No Known Allergies Allergy Verified 02/06/25 19:33 OB Exam Physical Exam Vital signs: Pulse BP 87 159/78 H 02/18/25 18:39 02/18/25 18:39 Narrative: Alert and oriented x 3 no shortness of breath Pain no chest pain no palpitations Chest clear bilaterally no additional sounds, no wheezing no rales CVS regular rate and rhythm No CVAT Abdomen nontender, normal bowel sounds No guarding no rigidity No hernias Ob exam : Size equal to dates uterus non tender Occasional/ contractions non tender FHR is category 1 feta presentation is vertex Detailed Labor and Delivery Exam Membranes: intact monitor accelerations: 15x15 monitor decelerations: None residential variability: Average (6-10) Tachysystole: No OB Results Labs 02/18/25 21:23 02/18/25 18:44 Labs: ordered labs for preeclampsia evaluation started betamethasone 12 mgm i/m q 24 hours will start labetalol 100 mgm po BID kept for 23 hour observation OB Assessment & Plan Assessment and Plan (1) Diet controlled gestational diabetes mellitus (GDM) in third trimester: Status: Acute (2) Encounter for supervision of high risk in third trimester, antepartum: Status: Acute (3) Advanced maternal age (AMA) in : Status: Acute (4) Gestational hypertension affecting sixth : Status: Acute (5) Pre-eclampsia during in third trimester, antepartum: Status: Acute Additional Plan Induction method: other Plan: other (magnesium sulphate for seizure prophylaxis ) Additional Plan Comment: US for presentationa nd EFW and then will decide to proceed with induction of labor now or after the second betamethasone based on patients BP control / she has no headache or blurry vision / will review labs and patients vital signs /review for induction
[2025-02-18] MEDS: BETAMET ACET/BETAMET NA PH (Celestone) 6 MG/ML VIAL 12 MG IM (18:47)
[2025-02-18 19:01] LABS: Collection Type, Urine Clean Catch
[2025-02-18 19:02] LABS: Basophils # (Auto) 0.0 Thou/mm3 (0.0-0.2); Basophils % (Auto) 0 % (0-2.5); Eosinophils # (Auto) 0.1 Thou/mm3 (0.0-0.5); Eosinophils % (Auto) 1 % (0-10); Hematocrit 30.4 % (36.0-46.0); Hemoglobin 9.5 g/dL (12.0-16.0); Immature Granulocytes Auto 0.15 Thou/mm3 (0.00-0.00); Lymphocytes # (Auto) 2.6 Thou/mm3 (1.0-4.8); Lymphocytes % (Auto) 24 % (10-50); Mean Corpuscular HGB Conc 31.3 g/dl (31.0-37.0); Mean Corpuscular Hemoglobin 24.2 pg (25.0-35.0); Mean Corpuscular Volume 78 fL (80-100); Monocytes # (Auto) 0.6 Thou/mm3 (0.0-0.8); Monocytes % (Auto) 6 % (0-12); Neutrophils # (Auto) 7.4 Thou/mm3 (1.8-7.7); Neutrophils % (Auto) 68 % (37-80); Nucleated Red Blood Cell # 0.00 Thou/mm3 (0.00-0.00); Nucleated Red Blood Cell % 0 /100 WBC (0); Platelet Count 202 Thou/mm3 (140-440); RDW Standard Deviation 40.6 fL (36.4-46.3); Red Blood Count 3.92 Miln/mm3 (4.00-5.20); White Blood Count 10.8 Thou/mm3 (3.6-11.0)
[2025-02-18 19:31] LABS: Bacteria,Urine Rare; Bilirubin,Urine Negative (Negative); Blood,Urine 1+ (Negative); Clarity,Urine Clear (Clear/Hazy); Color,Urine Colorless (Lt Yel-Yel); Glucose, Urine Negative (Negative); Ketones,Urine Negative (Negative); Leukocyte Esterase,Urine Positive (Negative); Nitrite,Urine Negative (Negative); PH,Urine 7.0 (5.0-7.0); Protein,Urine Negative (Neg - Trace); RBC,Urine 6 /hpf (0-3); Specific Gravity,Urine 1.003 (1.001-1.035); Squamous Epithelial Cell,Urine 1 /hpf (0-5); Urobilinogen,Urine Negative mg/dL (0.0-1.0); WBC,Urine 1 /hpf (0-5)
[2025-02-18 19:32] LABS: Fibrinogen 560 mg/dL (175-375); INR 0.9 (0.9-1.3); Partial Thromboplastin Time 24.6 Seconds (22.0-36.0); Prothrombin Time 9.6 Seconds (9.0-12.2)
[2025-02-18 19:36] LABS: Alanine Aminotransferase < 7 U/L (10-49); Albumin, Serum 3.8 gm/dL (3.5-5.0); Albumin/Globulin Ratio 1.7 (1.2-2.2); Alkaline Phosphatase 146 U/L (46-116); Anion Gap 12 (7-16); Aspartate Amino Transferase 15 U/L (0-34); BUN/Creatinine Ratio 16 Ratio (12-20); Bilirubin,Total 0.3 mg/dL (0.3-1.2); Blood Urea Nitrogen 8 mg/dL (9-23); Calcium 9.0 mg/dL (8.3-10.6); Calcium (Corrected) 9.2 mg/dL (8.5-10.1); Carbon Dioxide 23.3 mMol/L (20.0-31.0); Chloride 105 mMol/L (98-107); Creatinine (Component) 0.5 mg/dL (0.6-1.3); Estimated Creatinine Clearance 180.8 mL/min (>60); Globulin 2.2 gm/dL (2.3-3.5); Glucose 75 mg/dL (74-106); LDH (Lactate Dehydrogenase) 155 U/L (120-246); Osmolality,Calculated 276 (275-295); Potassium 3.6 mMol/L (3.4-5.1); Sodium 140 mMol/L (136-145); Total Protein 6.0 gm/dL (5.7-8.2); Uric Acid 3.0 mg/dL (3.1-7.8); eGFR > 60 See Note
[2025-02-18 20:04] LABS: Creatinine,Random Urine 14 mg/dL (30-125); Protein Total, Random Urine < 6 mg/dL (1-14)
--- NOTE | 2025-02-18 20:46 | XR_ITS ---
EXAMINATION: failure Limited TECHNIQUE: Limited transabdominal sonographic images pelvis Date and time: February 18, 2025, 2052 hours INDICATIONS: Unknown presentation, elevated blood pressure today, diagnosis advanced maternal age, diagnosis gestational diabetes FINDINGS: Viable intrauterine gestation in cephalic presentation spine maternal left Estimated gestational age 37 weeks 3 days, estimated weight 3283 g Cardiac motion 153 bpm IMPRESSION: Viable intrauterine gestation in cephalic presentation
[2025-02-18] MEDS: ACETAMINOPHEN 325 MG TABLET 650 MG PO (21:13)
[2025-02-18] MEDS: RINGERS LACTATED 1000 ML 1,000 ML 100 ML IV (21:33)
[2025-02-18] MEDS: Magnesium Sulfate 4 GM Ivpb 4 GM/50 ML BAG IV (21:42)
[2025-02-18] MEDS: MAGNESIUM SULF 20 GM IVPB 20 GM/500 ML BAG IV (21:56)
[2025-02-18 22:13] LABS: Basophils # (Auto) 0.0 Thou/mm3 (0.0-0.2); Basophils % (Auto) 0 % (0-2.5); Eosinophils # (Auto) 0.0 Thou/mm3 (0.0-0.5); Eosinophils % (Auto) 0 % (0-10); Hematocrit 31.3 % (36.0-46.0); Hemoglobin 9.8 g/dL (12.0-16.0); Immature Granulocytes Auto 0.18 Thou/mm3 (0.00-0.00); Lymphocytes # (Auto) 1.6 Thou/mm3 (1.0-4.8); Lymphocytes % (Auto) 15 % (10-50); Mean Corpuscular HGB Conc 31.3 g/dl (31.0-37.0); Mean Corpuscular Hemoglobin 24.3 pg (25.0-35.0); Mean Corpuscular Volume 78 fL (80-100); Monocytes # (Auto) 0.3 Thou/mm3 (0.0-0.8); Monocytes % (Auto) 3 % (0-12); Neutrophils # (Auto) 8.3 Thou/mm3 (1.8-7.7); Neutrophils % (Auto) 80 % (37-80); Nucleated Red Blood Cell # 0.00 Thou/mm3 (0.00-0.00); Nucleated Red Blood Cell % 0 /100 WBC (0); Platelet Count 213 Thou/mm3 (140-440); RDW Standard Deviation 40.5 fL (36.4-46.3); Red Blood Count 4.03 Miln/mm3 (4.00-5.20); White Blood Count 10.4 Thou/mm3 (3.6-11.0)
[2025-02-18 22:39] LABS: Syphilis Nonreactive (Nonreactive)
[2025-02-18] MEDS: LABETALOL 100 MG TABLET PO (23:15)
[2025-02-19] VITALS (380 sets, daily range): BP systolic 0–192; BP diastolic 0–95; PULSE 87–120; RESP 16–20; TEMP 36.6–37.2; O2SAT 89–100
[2025-02-19 00:11] LABS: Magnesium 3.0 mg/dL (1.6-2.6)
[2025-02-19 01:32] LABS: Amphetamine/Metham Scrn,Ur OB Negative (Negative); Benzoylecgonine Screen, Ur OB Negative (Negative); Opiate Screen,Urine OB Negative (Negative); THC Screen,Urine OB Negative (Negative)
[2025-02-19] MEDS: RINGERS LACTATED 1000 ML 1,000 ML 100 ML IV ×2 (05:08→17:02)
[2025-02-19] MEDS: LABETALOL 100 MG TABLET PO (05:47)
[2025-02-19] MEDS: MAGNESIUM SULF 20 GM IVPB 20 GM/500 ML BAG IV ×2 (06:27→17:02)
[2025-02-19 06:45] LABS: Magnesium 3.6 mg/dL (1.6-2.6)
--- NOTE | 2025-02-19 09:04 | PD.LDANTPROG ---
Subjective Subjective Interval history: Taken over care from overnight on-call physician. At the beginning of my shift patient was on magnesium. She is a 34-year-old multipara's at 33 weeks and 6 days per established dates in her chart which is based on LMP consistent with 29-week ultrasound. Patient received first dose of betamethasone at 1800 last night. Blood pressure is now in the mild range on labetalol 3 times daily tracing is category 1 Patient denies any signs of preeclampsia Exam Vital Signs Temp Pulse Resp BP Pulse Ox 98.5 F 95 16 141/74 H 100 02/19/25 04:00 02/19/25 09:03 02/19/25 04:00 02/19/25 09:03 02/19/25 09:01 Narrative Exam Deferred Urinary Catheter Management Cath placed during this visit: no Assessment & Plan Problems (1) Diet controlled gestational diabetes mellitus (GDM) in third trimester: Status: Acute Assessment and plan: Continue diabetic diet (2) Encounter for supervision of high risk in third trimester, antepartum: Status: Acute (3) Advanced maternal age (AMA) in : Status: Acute (4) Gestational hypertension affecting sixth : Status: Acute (5) Pre-eclampsia during in third trimester, antepartum: Status: Acute Assessment and plan: Patient is 33 weeks and 6 days. Will continue magnesium, administer second dose of betamethasone today. Plan to start induction tomorrow once she is 34 weeks Continue labetalol, will increase dose to 200x 3 times daily Time Spent With Patient Time with patient: less than 15 minutes Objective Labs 02/18/25 21:23 02/18/25 18:44 Labs: Laboratory Results - last 24 hr 02/18/25 02/18/25 02/18/25 18:15 18:34 18:44 WBC 10.8 RBC 3.92 L Hgb 9.5 L Hct 30.4 L MCV 78 L MCH 24.2 L MCHC 31.3 RDW Std Deviation 40.6 Plt Count 202 Neut % (Auto) 68 Lymph % (Auto) 24 [place] % (Auto) 6 Eos % (Auto) 1 Baso % (Auto) 0 Neut # (Auto) 7.4 Lymph # (Auto) 2.6 [place] # (Auto) 0.6 Eos # (Auto) 0.1 Baso # (Auto) 0.0 Immature Gran # (Auto) 0.15 H Absolute Nucleated RBC 0.00 Immature Gran % 1 H Nucleated RBC % 0 PT 9.6 INR 0.9 APTT 24.6 Fibrinogen 560 H Sodium 140 Potassium 3.6 Chloride 105 Carbon Dioxide 23.3 Anion Gap 12 BUN 8 L Creatinine 0.5 L Estim Creat Clear Calc 180.8 eGFR > 60 BUN/Creatinine Ratio 16 Glucose 75 Calculated Osmolality 276 Uric Acid 3.0 L Calcium 9.0 Corrected Calcium 9.2 Magnesium Total Bilirubin 0.3 AST 15 ALT < 7 L Alkaline Phosphatase 146 H Lactate Dehydrogenase 155 Total Protein 6.0 Albumin 3.8 Globulin 2.2 L Albumin/Globulin Ratio 1.7 Ur Collection Type Clean Catch Urine Color Colorless A Urine Clarity Clear Urine pH 7.0 Ur Specific [place] 1.003 Urine Protein Negative Urine Glucose (UA) Negative Urine Ketones Negative Urine Blood 1+ A Urine Nitrite Negative Urine Bilirubin Negative Urine Urobilinogen (Auto) Negative Ur Leukocyte Esterase Positive Urine RBC 6 H Urine WBC 1 Ur Squamous Epith Cells 1 Urine Bacteria Rare Ur Random Creatinine 14 L U Random Total Protein < 6 Urine Opiates Screen U Amphetamin/Meth Scrn U Cocaine Metab Screen U Marijuana (THC) Screen Syphilis Serology Blood Type Antibody Screen Crossmatch Blood Bank Wristband ID 02/18/25 02/18/25 02/18/25 21:23 23:22 23:59 WBC 10.4 RBC 4.03 Hgb 9.8 L Hct 31.3 L MCV 78 L MCH 24.3 L MCHC 31.3 RDW Std Deviation 40.5 Plt Count 213 Neut % (Auto) 80 Lymph % (Auto) 15 [place] % (Auto) 3 Eos % (Auto) 0 Baso % (Auto) 0 Neut # (Auto) 8.3 H Lymph # (Auto) 1.6 [place] # (Auto) 0.3 Eos # (Auto) 0.0 Baso # (Auto) 0.0 Immature Gran # (Auto) 0.18 H Absolute Nucleated RBC 0.00 Immature Gran % 2 H Nucleated RBC % 0 PT INR APTT Fibrinogen Sodium Potassium Chloride Carbon Dioxide Anion Gap BUN Creatinine Estim Creat Clear Calc eGFR BUN/Creatinine Ratio Glucose Calculated Osmolality Uric Acid Calcium Corrected Calcium Magnesium 3.0 H Total Bilirubin AST ALT Alkaline Phosphatase Lactate Dehydrogenase Total Protein Albumin Globulin Albumin/Globulin Ratio Ur Collection Type Urine Color Urine Clarity Urine pH Ur Specific [place] Urine Protein Urine Glucose (UA) Urine Ketones Urine Blood Urine Nitrite Urine Bilirubin Urine Urobilinogen (Auto) Ur Leukocyte Esterase Urine RBC Urine WBC Ur Squamous Epith Cells Urine Bacteria Ur Random Creatinine U Random Total Protein Urine Opiates Screen Negative U Amphetamin/Meth Scrn Negative U Cocaine Metab Screen Negative U Marijuana (THC) Screen Negative Syphilis Serology Nonreactive Blood Type O Positive Antibody Screen NEGATIVE Crossmatch See Detail Blood Bank Wristband ID Yes 02/19/25 05:21 WBC RBC Hgb Hct MCV MCH MCHC RDW Std Deviation Plt Count Neut % (Auto) Lymph % (Auto) [place] % (Auto) Eos % (Auto) Baso % (Auto) Neut # (Auto) Lymph # (Auto) [place] # (Auto) Eos # (Auto) Baso # (Auto) Immature Gran # (Auto) Absolute Nucleated RBC Immature Gran % Nucleated RBC % PT INR APTT Fibrinogen Sodium Potassium Chloride Carbon Dioxide Anion Gap BUN Creatinine Estim Creat Clear Calc eGFR BUN/Creatinine Ratio Glucose Calculated Osmolality Uric Acid Calcium Corrected Calcium Magnesium 3.6 H Total Bilirubin AST ALT Alkaline Phosphatase Lactate Dehydrogenase Total Protein Albumin Globulin Albumin/Globulin Ratio Ur Collection Type Urine Color Urine Clarity Urine pH Ur Specific [place] Urine Protein Urine Glucose (UA) Urine Ketones Urine Blood Urine Nitrite Urine Bilirubin Urine Urobilinogen (Auto) Ur Leukocyte Esterase Urine RBC Urine WBC Ur Squamous Epith Cells Urine Bacteria Ur Random Creatinine U Random Total Protein Urine Opiates Screen U Amphetamin/Meth Scrn U Cocaine Metab Screen U Marijuana (THC) Screen Syphilis Serology Blood Type Antibody Screen Crossmatch Blood Bank Wristband ID
[2025-02-19] MEDS: ACETAMINOPHEN 325 MG TABLET 650 MG PO (09:07)
[2025-02-19 12:04] LABS: Magnesium 4.0 mg/dL (1.6-2.6)
[2025-02-19] MEDS: ACETAMINOPHEN IVPB 1,000 MG/100 ML VIAL 250 MG IV (13:34)
[2025-02-19] MEDS: LABETALOL 100 MG TABLET 200 MG PO ×2 (14:01→21:36)
[2025-02-19 14:30] LABS: ROM Kit Exp Date# 11828; ROM Kit Lot # 58104371; ROM Swab Mixed By: ML; Swb Mxed in Solvent 1 min? Yes
[2025-02-19 14:31] LABS: Rupture of Fetal Membranes Negative (Negative)
--- NOTE | 2025-02-19 14:35 | XR_ITS ---
EXAMINATION: legs Limited TECHNIQUE: Limited transabdominal sonographic images pelvis Date and time: February 19, 2025, 1529 hours INDICATIONS: Labor evaluation, unknown amniotic fluid index. FINDINGS: Cardiac motion 153 bpm Amniotic fluid index 7.0 cm IMPRESSION: Amniotic fluid index 7.0 cm
[2025-02-19] MEDS: BETAMET ACET/BETAMET NA PH (Celestone) 6 MG/ML VIAL 12 MG IM (18:50)
[2025-02-19 18:58] LABS: Magnesium 4.0 mg/dL (1.6-2.6)
[2025-02-20] VITALS (214 sets, daily range): BP systolic 0–185; BP diastolic 0–90; PULSE 82–115; RESP 16–19; TEMP 36.7–36.9; O2SAT 90–100
[2025-02-20 00:22] LABS: Magnesium 4.3 mg/dL (1.6-2.6)
[2025-02-20] MEDS: Ampicillin Inj 2,000 MG in SODIUM CHLORIDE 0.9% (POP) 100 ML 200 MG IV (01:06)
[2025-02-20] MEDS: MAGNESIUM SULF 20 GM IVPB 20 GM/500 ML BAG IV (04:13)
[2025-02-20] MEDS: Ampicillin Inj 1,000 MG in SODIUM CHLORIDE 0.9% (Popper) 50 ML 50 MG IV ×4 (04:13→17:21)
[2025-02-20] MEDS: ACETAMINOPHEN IVPB 1,000 MG/100 ML VIAL 250 MG IV (04:52)
[2025-02-20] MEDS: fentaNYL CIT INJ 50 mCg/ML AMP 2ML 100 MCG IVP ×2 (05:55→08:33)
[2025-02-20 07:09] LABS: Magnesium 4.3 mg/dL (1.6-2.6)
--- NOTE | 2025-02-20 08:10 | ESPR_ITS ---
Documentation for date of: 02/20/25 OB Labor Progress Note Pain Control Pain control: tolerating well Comments: Patient reports some crampy abdominal pain Pelvic Exam Dilation (cm): 1.5 Effacement (%): 50 station: -2 Amniotic membrane status: Intact Contractions Monitor mode: External Contraction frequency: 2-6 Contraction intensity: Mild Status status: Category l Assessment and Plan Assessment: induction ongoing Plan OB labor note: continuous present management Comments: DC magnesium. Remove Cervidil at noon. Cytotec after okay for fentanyl. Epidural once patient is in active labor. History of Present Illness HPI Taken over care from overnight on-call physician. At the beginning of my shift, the patient was on magnesium. She is a 34-year-old at 34 weeks by LMP 06/27/24 consistent with 29-week ultrasound. On her first visit at 14 weeks to a [facility] , she gave an LMP of 06/19/24 which would give her an EDC of 03/27/25. Pt could be 35 weeks EGA based on that LMP. Patient received BMTZ x 2 Patient is being induced for preeclampsia. 24-hour urine corresponds to 528 mg. All preeclamptic labs were normal. Patient has been reporting a consistent headache since admission. She has been on magnesium for 2 days and has a Cervidil in place since midnight. tracing is category 1 This morning, patient is reporting some crampy pain. She states she wants an epidural when she is in labor. She is okay with trying fentanyl for now. The plan will be to feed the patient a general diet. Turn off her magnesium as her blood pressures are not severe range. Continue ampicillin for unknown group B strep. Remove Cervidil at noon. Oral Cytotec after that. The patient is Qatari-speaking only, TATIANA Coombs at bedside, and official software developer mid level was on the telephone in order to answer all the patient's questions and explained the plan of care in detail.
[2025-02-20] MEDS: LABETALOL 100 MG TABLET 200 MG PO ×3 (08:24→20:51)
[2025-02-20] MEDS: RINGERS LACTATED 1000 ML 1,000 ML 100 ML IV (10:30)
[2025-02-20] MEDS: ONDANSETRON INJ 2 MG/ML INJ 2 ML 4 MG IVP (11:19)
--- NOTE | 2025-02-20 20:32 | ESPR_ITS ---
Documentation for date of: 02/20/25 OB Labor Progress Note Pain Control Pain control: tolerating well Pelvic Exam Dilation (cm): 1.5 Effacement (%): 50 station: -3 Amniotic membrane status: Intact Contractions Monitor mode: External Contraction frequency: 9-9 Contraction intensity: Mild Status status: Category l Assessment and Plan Plan OB labor note: other Comments: Discharge home with close follow-up as there are no consistent signs of severe preeclampsia at this point. History of Present Illness HPI Taken over care from overnight on-call physician. At the beginning of my shift, the patient was on magnesium. She is a 34-year-old at 34 weeks by LMP 06/27/24 consistent with 29-week ultrasound. Was given EDC of 04/03/2025 on her first visit at 14 weeks to a [facility] , she gave an LMP of 06/19/24 which would give her an EDC of 03/27/25. Pt could be 35 weeks EGA based on that LMP. Patient received BMTZ x 2 Patient is being induced for preeclampsia. 24-hour urine corresponds to 528 mg. All preeclamptic labs were normal. Patient has been reporting a consistent headache since admission. She has been on magnesium for 2 days and has a Cervidil in place since midnight. tracing is category 1 This morning, patient was reporting some crampy pain. She stated she wanted an epidural when she is in labor. She was okay with trying fentanyl for now. She has been given a general diet all day. I turned off her magnesium this morning as her blood pressures were not in the severe range. The patient has had several doses of ampicillin for unknown group B strep. Her Cervidil was removed at noon. She had 1 dose of oral Cytotec. The patient has been carefully monitored all day on bedrest and her blood pressures have been largely in the 130s over 70s range. Occasionally she will have a high blood pressure that is not reproducible. She has been on labetalol 100 twice daily with no IV pushes of medications. Her preeclamptic labs were normal with the exception of a 24-hour urine protein that was about 528 mg. Her cervix has remained 1-2/ 50 and very posterior with a high station. JESUSITA was 7.0. Patient has been on continuous monitoring the baby has looked reactive for a 34 to 35-week baby. As the patient has no consistent signs of severe preeclampsia including no abnormal lab work, no scotomata with severe headaches, no RUQ pain and only has a slightly elevated urine protein creatinine ratio, the plan will be to send the patient home with close follow-up. She will go home on labetalol 100 mg twice daily. Signs of severe preeclampsia were discussed the patient and at bedside. She will follow-up Sunday in OB triage for a nonstress test ,BPP and possible PIH labs. If the patient is not delivered by 36 weeks, the plan will be to readmit her and induce her labor at that point unless she becomes severely preeclamptic before then.
--- NOTE | 2025-02-20 20:41 | ESDS_ITS ---
DS: Providers Provider Date of admission: 02/18/25 20:35 Primary care physician: Tim Ross MD Admitting Provider: Lo Matta CNM Attending Provider on Admission: Miki Calderon MD Attending Provider on DC: Laura Harvey MD ([facility]) Discharging Provider: Laura Harvey MD ([facility]) Anticipated date of discharge: 02/20/25 DS: Diagnosis Discharge Diagnosis (1) Diet controlled gestational diabetes mellitus (GDM) in third trimester: Status: Acute Assessment & Plan: Continue checking blood sugars and following diet at home (2) Gestational hypertension affecting sixth : Status: Acute Assessment & Plan: No signs of severe preeclampsia at this time. Send home on modified bedrest with very close follow-up. Prescribed labetalol 100 twice daily. Return Friday 02/23 to OB triage for nonstress test BPP and lab work. Problem List Completed Was Problem List Reviewed/Reconciled?: Yes Summary/Hosp Course Brief History: Taken over care from overnight on-call physician. At the beginning of my shift, the patient was on magnesium. She is a 34-year-old at 34 weeks by LMP 06/27/24 consistent with 29-week ultrasound. Was given EDC of 04/03/2025 on her first visit at 14 weeks to a [facility] , she gave an LMP of 06/19/24 which would give her an EDC of 03/27/25. Pt could be 35 weeks EGA based on that LMP. Patient received BMTZ x 2 Patient is being induced for preeclampsia. 24-hour urine corresponds to 528 mg. All preeclamptic labs were normal. Patient has been reporting a consistent headache since admission. She has been on magnesium for 2 days and has a Cervidil in place since midnight. tracing is category 1 This morning, patient was reporting some crampy pain. She stated she wanted an epidural when she is in labor. She was okay with trying fentanyl for now. She has been given a general diet all day. I turned off her magnesium this morning as her blood pressures were not in the severe range. The patient has had several doses of ampicillin for unknown group B strep. Her Cervidil was removed at noon. She had 1 dose of oral Cytotec. The patient has been carefully monitored all day on bedrest and her blood pressures have been largely in the 130s over 70s range. Occasionally she will have a high blood pressure that is not reproducible. She has been on labetalol 100 twice daily with no IV pushes of medications. Her preeclamptic labs were normal with the exception of a 24-hour urine protein that was about 528 mg. Her cervix has remained 1-2/ 50 and very posterior with a high station. JESUSITA was 7.0. Patient has been on continuous monitoring the baby has looked reactive for a 34 to 35-week baby. As the patient has no consistent signs of severe preeclampsia including no abnormal lab work, no scotomata with severe headaches, no RUQ pain and only has a slightly elevated urine protein creatinine ratio, the plan will be to send the patient home with close follow-up. She will go home on labetalol 100 mg twice daily. Signs of severe preeclampsia were discussed the patient and at bedside. She will follow-up Sunday in OB triage for a nonstress test ,BPP and possible PIH labs. If the patient is not delivered by 36 weeks, the plan will be to readmit her and induce her labor at that point unless she becomes severely preeclamptic before then. Status at Discharge Cognitive/behavioral status at discharge: Patient is alert and orient x 3 in no apparent distress Functional status at discharge: independent ambulation Overall status at discharge: Undelivered Time Spent with Patient Time attestation: Total time spent providing and/or coordinating discharge services: Time spent: Less than 30 minutes Specific discharge activities: Modified bedrest. Pelvic rest. Come back for severe headaches, changes in vision, severe right upper quadrant pain or shortness of breath. Follow-up 02/23/2025 for an NST BPP and labs. Exam Vital Signs Temp Pulse Resp BP Pulse Ox O2 Del Method 98.0 F 87 17 135/89 H 96 Room Air 02/20/25 12:00 02/20/25 16:25 02/20/25 12:00 02/20/25 16:25 02/20/25 13:11 02/20/25 12:00 Narrative Exam Patient is alert and orient x 3 in no apparent distress she is cooperative and answering questions appropriately. Father the baby is at bedside. Discharge Plan Plan Patient Disposition: HOME (Self Care) Disposition Comment: Stable Patient condition on transfer: Stable Prescriptions/Referrals Prescriptions/Med Rec: New acetaminophen 325 mg Tablet 650 mg PO Q6HR PRN (Reason: Pain 1-6 (Mild-Mod) Qty: 30 0RF labetalol 100 mg Tablet 200 mg PO TID Qty: 60 0RF Continued (DME) blood-glucose meter Kit See Rx Instructions .MEDSUPPLY Qty: 1 0RF Rx Instructions: As directed (DME) Blood Glucose Test Strip See Rx Instructions .MEDSUPPLY Qty: 10 0RF Rx Instructions: As directed (DME) lancets Misc See Rx Instructions .MEDSUPPLY Qty: 100 0RF Rx Instructions: As directed (DME) Blood Glucose Test Strip See Rx Instructions .MEDSUPPLY Qty: 50 3RF Rx Instructions: As directed (DME) lancets Misc See Rx Instructions .MEDSUPPLY Qty: 100 3RF Rx Instructions: As directed Classic 28 mg iron- 800 mcg tablet 1 tab PO QDAY Patient Comments: TAKE 1 TABLET BY MOUTH EVERY DAY Referrals: Tim Ross MD [Primary Care Provider, Family Practice] Patient/Caregiver Discharge Instructions Discharge Activity: activity as tolerated Other Discharge Activity Instructions:: Modified bedrest and pelvic rest Other Discharge Diet Instructions: Low-salt diet, diabetic gestational diet. Education Materials: Kick Counts, Understanding Preeclampsia, Prematurity, [facility] Antepartum Discharge, Antepartum Discharge Print Language: Welsh Activity Restrictions/Additional Instructions: -Regrese al departamento de Maternidad el 02/23/2025 para un NST, BPP and PIH Panel. -No tenga relaciones sexuales hasta que el doctor la law. -Raffy de [place] y pelvico. -Aumente long liquidos de agua. Stand Alone Forms: Mela Award Info., Patient Portal Info Letter Discharge Order Discharge Orders: Discharge (Routine); Ordered 02/20/25 Ordered By: Laura Harvey ([facility]) Planned Discharge Date 02/20/25
== END 2025-02-20 21:20 | disposition home or self-care (01) | DRG 566 ==
PROVIDERS: Obstetrics & Gynecology; Admitting Provider Advanced Practice Midwife; PCP Family Medicine; Visit Provider Obstetrics & Gynecology
DX: O14.93 Unspecified pre-eclampsia, third trimester (principal); O24.410 Gestational diabetes mellitus in pregnancy, diet controlled; Z3A.34 34 weeks gestation of pregnancy
CPT/HCPCS: 36415; 76815; 80053; 80307; 81001; 82570; 83615; 83735; 84112; 84156; 84550; 85025; 85384; 85610; 85730; 86780; 86850; 86900; 86901; 86923; J0131; J0290; J0702; J2405; J3010; J3475; J7050; J7120; A9270

== ENCOUNTER 2025-02-23 16:42 | Inpatient (IN) | payer MEDICAID, SELFPAY ==
[2025-02-23] VITALS (122 sets, daily range): BP systolic 130–201; BP diastolic 63–104; PULSE 79–100; RESP 18–99; TEMP 36.9–37.3; O2SAT 91–100; BMI 39.2
--- NOTE | 2025-02-23 11:28 | XR_ITS ---
EXAMINATION: age Limited TECHNIQUE: Limited transabdominal sonographic images pelvis INDICATIONS: Low amniotic fluid on ultrasound February 19, 2025. Date and time: February 23, 2025, 1248 hours FINDINGS: Amniotic fluid index 6.9 cm Cardiac motion 140 bpm IMPRESSION: Amniotic fluid index 6.9 cm
[2025-02-23 12:50] LABS: Collection Type, Urine Clean Catch
[2025-02-23 12:58] LABS: Bilirubin,Urine Negative (Negative); Blood,Urine 1+ (Negative); Clarity,Urine Clear (Clear/Hazy); Color,Urine Yellow (Lt Yel-Yel); Glucose, Urine Negative (Negative); Ketones,Urine Negative (Negative); Leukocyte Esterase,Urine Positive (Negative); Nitrite,Urine Negative (Negative); PH,Urine 6.5 (5.0-7.0); Protein,Urine 2+ (Neg - Trace); RBC,Urine 76 /hpf (0-3); Specific Gravity,Urine 1.029 (1.001-1.035); Squamous Epithelial Cell,Urine 3 /hpf (0-5); Urobilinogen,Urine Negative mg/dL (0.0-1.0); WBC,Urine 2 /hpf (0-5)
[2025-02-23] MEDS: LABETALOL 100 MG TABLET 200 MG PO ×2 (12:59→21:56)
[2025-02-23 13:22] LABS: Creatinine,Random Urine 150 mg/dL (30-125); Protein Total, Random Urine 142 mg/dL (1-14)
[2025-02-23 14:16] LABS: Basophils # (Auto) 0.0 Thou/mm3 (0.0-0.2); Basophils % (Auto) 0 % (0-2.5); Eosinophils # (Auto) 0.1 Thou/mm3 (0.0-0.5); Eosinophils % (Auto) 1 % (0-10); Hematocrit 28.3 % (36.0-46.0); Hemoglobin 8.9 g/dL (12.0-16.0); Immature Granulocytes Auto 0.40 Thou/mm3 (0.00-0.00); Lymphocytes # (Auto) 2.3 Thou/mm3 (1.0-4.8); Lymphocytes % (Auto) 19 % (10-50); Mean Corpuscular HGB Conc 31.4 g/dl (31.0-37.0); Mean Corpuscular Hemoglobin 24.6 pg (25.0-35.0); Mean Corpuscular Volume 78 fL (80-100); Monocytes # (Auto) 0.8 Thou/mm3 (0.0-0.8); Monocytes % (Auto) 6 % (0-12); Neutrophils # (Auto) 8.6 Thou/mm3 (1.8-7.7); Neutrophils % (Auto) 71 % (37-80); Nucleated Red Blood Cell # 0.03 Thou/mm3 (0.00-0.00); Nucleated Red Blood Cell % 0 /100 WBC (0); Platelet Count 204 Thou/mm3 (140-440); RDW Standard Deviation 42.0 fL (36.4-46.3); Red Blood Count 3.62 Miln/mm3 (4.00-5.20); White Blood Count 12.1 Thou/mm3 (3.6-11.0)
[2025-02-23 14:55] LABS: Fibrinogen 423 mg/dL (175-375); INR 0.9 (0.9-1.3); Partial Thromboplastin Time 23.7 Seconds (22.0-36.0); Prothrombin Time 9.7 Seconds (9.0-12.2)
[2025-02-23 14:56] LABS: Alanine Aminotransferase 10 U/L (10-49); Albumin, Serum 3.6 gm/dL (3.5-5.0); Albumin/Globulin Ratio 1.8 (1.2-2.2); Alkaline Phosphatase 140 U/L (46-116); Anion Gap 11 (7-16); Aspartate Amino Transferase 17 U/L (0-34); BUN/Creatinine Ratio 20 Ratio (12-20); Bilirubin,Total 0.3 mg/dL (0.3-1.2); Blood Urea Nitrogen 10 mg/dL (9-23); Calcium 9.1 mg/dL (8.3-10.6); Calcium (Corrected) 9.4 mg/dL (8.5-10.1); Carbon Dioxide 23.6 mMol/L (20.0-31.0); Chloride 105 mMol/L (98-107); Creatinine (Component) 0.5 mg/dL (0.6-1.3); Estimated Creatinine Clearance 189.1 mL/min (>60); Globulin 2.0 gm/dL (2.3-3.5); Glucose 121 mg/dL (74-106); Osmolality,Calculated 279 (275-295); Potassium 4.0 mMol/L (3.4-5.1); Sodium 140 mMol/L (136-145); Total Protein 5.6 gm/dL (5.7-8.2); Uric Acid 3.6 mg/dL (3.1-7.8); eGFR > 60 See Note
[2025-02-23] MEDS: LABETALOL INJ 5 MG/ML VIAL 20 ML 20 MG IVP (15:42)
[2025-02-23 15:49] LABS: Syphilis Nonreactive (Nonreactive)
[2025-02-23] MEDS: RINGERS LACTATED 1000 ML 1,000 ML 100 ML IV ×3 (16:33→23:32)
--- NOTE | 2025-02-23 17:19 | ESHP_ITS ---
Documentation for date of: 02/23/25 OB Labor/Induct. HPI History of Present Illness Chief complaint: Follow-up for NST for preeclampsia : 6 Para: 3 Term pregnancies: 3 pregnancies: 0 Living children: 3 History of Abortions: Spontaneous and Elective: 2 History of Vaginal deliveries: 3 History of sections: No History of : No SARAI: 04/03/25 Gestational Age (weeks): 34 Gestational Age (days): 4 History of present illness: The patient is a 34-year-old -0-2-3 at 34-3/7 or 35 4/7 weeks based on two EDCs. Pt was given an early EDC of 03/26/25 at [facility]. This would put her at 35-4/7 weeks. They never did an ultrasound. At some point, patient was given an EDC of 04/03/2025 which which put her at 34-3/[address] she is admitted with weeks hypertension. She was admitte 05/21 and discharged 02/20. She presented today for scheduled NST JESUSITA with labs. Patient's blood pressures were elevated and her UPCR ratio was 0.94 which corresponds to a 24-hour urine of 1.2. The patient had blood pressures in the 150s to 160s over 70s. Other preeclamptic labs are normal. Patient cervical exam is 2/ 50/-3 vertex. JESUSITA is good. Patient is admitted for induction of labor for preeclampsia. History of Present Dating criteria: based on 2nd trimester US only Adequate Care: Yes Ultrasounds: normal mid trimester US Obstetrical complications: gestational diabetes (Diet controlled) Narrative: AMA Labs Maternal Blood Type: O Pos Labs: Negative: RPR, Hepatitis B, Rubella Titre, HIV, Chlamydia and Gonorrhea and Unknown: Group Beta Strep Review of Systems Review of Systems Narrative Review of Systems: Patient reports some dizziness and mild headache. No shortness of breath or right upper quadrant pain Past Medical History Surgical History SURGICAL: Negative Section Past Medical History Comments PMH COMMENT: Patient's had a tummy tuck and breast augmentation in the past Meds Home Medications and Allergies Home Medications ?Medication ?Instructions ?Recorded ?Confirmed ?Type vits no.126-ferrous fum 1 tab PO QDAY 5 02/23/25 History 28 mg iron-folic acid 800 mcg tablet (Classic ) Allergies Allergy/AdvReac Type Severity Reaction Status Date / Time No Known Allergies Allergy Verified 02/23/25 11:29 OB Exam Physical Exam Vital signs: Temp Pulse Resp BP 98.4 F 83 18 179/81 H 02/23/25 11:45 02/23/25 17:15 02/23/25 11:45 02/23/25 17:15 Routine Abdominal Exam Abdominal: Present soft Detailed Labor and Delivery Exam Dilation (cm): 2 Effacement (%): 50 Cervix position: posterior station: -3 Consistency: medium Presentation: Vertex Membranes: intact monitor accelerations: 15x15 monitor decelerations: None roasterman variability: Average (6-10) Contraction frequency (min): irregular OB Results Labs 02/23/25 13:22 02/23/25 13:22 Labs: Short CBC 02/23/25 Range/Units 13:22 WBC 12.1 H (3.6-11.0) Thou/mm3 Hgb 8.9 L (12.0-16.0) g/dL Hct 28.3 L (36.0-46.0) % Plt Count 204 (140-440) Thou/mm3 BMP 02/23/25 13:22 Sodium 140 Potassium 4.0 Chloride 105 Carbon Dioxide 23.6 BUN 10 Creatinine 0.5 L Glucose 121 H Calcium 9.1 Liver Function 02/23/25 Range/Units 13:22 Total Bilirubin 0.3 (0.3-1.2) mg/dL AST 17 (0-34) U/L ALT 10 (10-49) U/L Alkaline Phosphatase 140 H (46-116) U/L Albumin 3.6 (3.5-5.0) gm/dL Urine 02/23/25 Range/Units 12:23 Urine Color Yellow (Lt Yel-Yel) Urine Clarity Clear (Clear/Hazy) Urine pH 6.5 (5.0-7.0) Ur Specific [place] 1.029 (1.001-1.035) Urine Protein 2+ A (Neg - Trace) Urine Glucose (UA) Negative (Negative) OB Assessment & Plan Assessment and Plan (1) Gestational hypertension affecting sixth : Status: Acute (2) Diet controlled gestational diabetes mellitus (GDM) in third trimester: Status: Acute (3) Pre-eclampsia during in third trimester, antepartum: Status: Acute Assessment and plan: Admit patient. Induction of labor. (4) Advanced maternal age (AMA) in : Status: Acute Additional Plan Induction method: per misoprostol protocol Plan: induction and GBS prophylaxis tx Additional Plan Comment: Hold magnesium for now. IV labetalol and nifedipine for blood pressure control. Ampicillin once patient is in active labor.
[2025-02-23] MEDS: hydrALAZINE INJ 20 MG/ML VIAL 5 MG IVP (17:36)
--- NOTE | 2025-02-23 21:26 | PD.LDPN ---
Documentation for date of: 02/23/25 OB Labor Progress Note Pain Control Pain control: epidural Pelvic Exam Dilation (cm): 3 Effacement (%): 70 station: -2 Amniotic membrane status: Bulging Contractions Monitor mode: External Contraction frequency: 3-7 Contraction pattern: Tetanic Contraction intensity: Mild Status status: Category l Assessment and Plan Assessment: induction ongoing Plan OB labor note: continuous present management Comments: Cytotec 50 ug #2 to be given now History of Present Illness HPI The patient is a 34-year-old -0-2-3 at 34-3/7 or 35 4/7 weeks based on two EDCs. Pt was given an early EDC of 03/26/25 at [facility]. This would put her at 35-4/7 weeks. They never did an ultrasound. At some point, patient was given an EDC of 04/03/2025 which which put her at 34-3/[address] she is admitted with weeks hypertension. She was admitte 05/21 and discharged 02/20. She presented today for scheduled NST JESUSITA with labs. Patient's blood pressures were elevated and her UPCR ratio was 0.94 which corresponds to a 24-hour urine of 1.2. The patient had blood pressures in the 150s to 160s over 70s. Other preeclamptic labs are normal. Patient cervical exam is 2/ 50/-3 vertex. JESUSITA is good. Patient is admitted for induction of labor for preeclampsia. Pt now is /-2/. Has epidural in place. Plan: Cytotec #2 Ampicillin now for unknown GBBS
[2025-02-23] MEDS: Ampicillin Inj 2,000 MG in SODIUM CHLORIDE 0.9% (POP) 100 ML 200 MG IV (21:57)
[2025-02-24] VITALS (197 sets, daily range): BP systolic 121–174; BP diastolic 56–95; PULSE 77–118; RESP 16–18; TEMP 36.7–37.4; O2SAT 91–100
[2025-02-24] MEDS: Ampicillin Inj 1,000 MG in SODIUM CHLORIDE 0.9% (Popper) 50 ML 50 MG IV ×2 (01:59→06:20)
[2025-02-24] MEDS: LABETALOL 100 MG TABLET 200 MG PO ×3 (06:21→21:23)
--- NOTE | 2025-02-24 06:44 | PD.LDPN ---
Documentation for date of: 02/24/25 OB Labor Progress Note Pain Control Pain control: epidural Pelvic Exam Dilation (cm): 6 Effacement (%): 80 station: -2 Amniotic membrane status: Ruptured Comments: AROM 0645 IUPC placed Contractions Monitor mode: External Contraction frequency: 1.5-4 Contraction intensity: Moderate Status status: Category l Assessment and Plan Assessment: active labor and induction ongoing History of Present Illness HPI The patient is a 34-year-old -0-2-3 at 34-3/7 or 35 4/7 weeks based on two EDCs. Pt was given an early EDC of 03/26/25 at [facility]. This would put her at 35-4/7 weeks. They never did an ultrasound. At some point, patient was given an EDC of 04/03/2025 which which put her at 34-3/[address] she is admitted with weeks hypertension. She was admitte 05/21 and discharged 02/20. She presented today for scheduled NST JESUSITA with labs. Patient's blood pressures were elevated and her UPCR ratio was 0.94 which corresponds to a 24-hour urine of 1.2. The patient had blood pressures in the 150s to 160s over 70s. Other preeclamptic labs are normal. Patient cervical exam is 2/ 50/-3 vertex. JESUSITA is good. Patient is admitted for induction of labor for preeclampsia. Plan: Cytotec. Had 2 PO doses of cytotec Ampicillin now for unknown GBBS Had epidural placed. Blood pressures under good control. Exam and AROM at 0645
[2025-02-24] MEDS: MINERAL OIL 30 ML UDC TOP (10:35)
[2025-02-24] MEDS: OXYTOCIN in NS 20 units 20 UNIT/1,000 ML BAG 125 UNIT IV (10:37)
[2025-02-24] MEDS: OXYTOCIN INJ 10 UNIT/ML VIAL IM (10:37)
[2025-02-24] MEDS: TRANEXAMIC ACID 1,000 MG IVPB 1,000 MG/100 ML BAG 200 MG IV (10:41)
[2025-02-24] MEDS: BENZO/LANO/ALOE (Dermoplast) 60 GM CAN 1 SPRAY TOP (10:52)
--- NOTE | 2025-02-24 11:06 | OBDSUM_ITS ---
Data (Lambert) Data Hx Section: No : 6 Term: 3 : 0 Livin Abortions: Spontaneous & Theraputic: 2 Delivery Data (Lambert) Labor Data Initiation of labor: Induction Induction/Augmentation Agent: Cytotec-PO, Cytotec-Vaginal and Artificial ROM ROM date: 02/24/25 ROM time: 06:40 Amniotic membrane rupture type: Artificial Amniotic fluid description: Clear Delivery Data EDC: 04/03/24 EDC calculated by:: ultrasound Date of arrival to unit: 02/23/25 Time of arrival to unit: 11:22 Onset of labor date: 02/24/25 Onset of labor time: 06:00 Complete dilation date: 02/24/25 Complete dilation time: 10:20 delivery date: 02/24/25 [place] delivery time: 10:31 Gestational age (weeks): 34 Gestational age (days): 4 Placenta delivery date: 02/24/25 Placenta delivery time: 10:36 Stage 1 total time: Labor - Stage 1 Duration 4 hours and 20 minutes Delivered by: Yue Matta Delivery nurse: Mary Sal nurse: [facility] Art Therapist at delivery: No Support person(s) at delivery: fob and pt daughter Other staff at delivery: Leodan Canseco RN Delivery Method Delivery method: Normal Vaginal Delivery Presentation: Vertex position: OA Anesthesia Type Anesthesia Type: Epidural Delivery Room Medications Delivery room medications: Pitocin 10 u IM, Pitocin 20 u IV, Cytotec 800 OK and other (txa) Placenta Placenta delivery description: Spontaneous (inspected, intact) Cord blood sent to lab: Yes cord blood collection: Cord Blood Type Episiotomy Episiotomy description: None Lacerations #1: Perineal: 2nd degree Perineal repair Sutures used for repair: 3.0 Vicryl EBL Estimated blood loss (ml): 450 Umbilical Cord cord description: 3 Vessels Data (Lambert) Data order: 1 [place]'s gender: Female Identification band number: [id number] weight (gms): 4010 g Weight (pounds): 8 lbs and 13.4 ozs length: 54.61 cm 1 minute: 8 5 minutes: 9
[2025-02-24] MEDS: hydrALAZINE INJ 20 MG/ML VIAL 5 MG IVP (12:36)
[2025-02-24] MEDS: ACETAMINOPHEN 325 MG TABLET 650 MG PO ×2 (14:30→20:11)
[2025-02-24] MEDS: IBUPROFEN TAB 400 MG TABLET 800 MG PO (19:40)
[2025-02-24] MEDS: DOCUSATE SOD 100 MG CAPSULE PO (20:11)
[2025-02-24] MEDS: Hydrocortisone Cr 1% 30 GM TUBE TOP (20:12)
[2025-02-24 20:56] LABS: Basophils # (Auto) 0.1 Thou/mm3 (0.0-0.2); Basophils % (Auto) 0 % (0-2.5); Eosinophils # (Auto) 0.0 Thou/mm3 (0.0-0.5); Eosinophils % (Auto) 0 % (0-10); Hematocrit 28.9 % (36.0-46.0); Hemoglobin 9.3 g/dL (12.0-16.0); Immature Granulocytes Auto 0.31 Thou/mm3 (0.00-0.00); Lymphocytes # (Auto) 2.6 Thou/mm3 (1.0-4.8); Lymphocytes % (Auto) 11 % (10-50); Mean Corpuscular HGB Conc 32.2 g/dl (31.0-37.0); Mean Corpuscular Hemoglobin 24.2 pg (25.0-35.0); Mean Corpuscular Volume 75 fL (80-100); Monocytes # (Auto) 1.1 Thou/mm3 (0.0-0.8); Monocytes % (Auto) 5 % (0-12); Neutrophils # (Auto) 19.3 Thou/mm3 (1.8-7.7); Neutrophils % (Auto) 83 % (37-80); Nucleated Red Blood Cell # 0.02 Thou/mm3 (0.00-0.00); Nucleated Red Blood Cell % 0 /100 WBC (0); Platelet Count 193 Thou/mm3 (140-440); RDW Standard Deviation 39.9 fL (36.4-46.3); Red Blood Count 3.85 Miln/mm3 (4.00-5.20); White Blood Count 23.4 Thou/mm3 (3.6-11.0)
[2025-02-25] VITALS (10 sets, daily range): BP systolic 132–155; BP diastolic 66–90; PULSE 74–85; RESP 13–19; TEMP 36.6–36.7; O2SAT 96–99
[2025-02-25] MEDS: IBUPROFEN TAB 400 MG TABLET 800 MG PO ×3 (05:01→23:09)
[2025-02-25 05:13] LABS: Basophils # (Auto) 0.0 Thou/mm3 (0.0-0.2); Basophils % (Auto) 0 % (0-2.5); Eosinophils # (Auto) 0.1 Thou/mm3 (0.0-0.5); Eosinophils % (Auto) 0 % (0-10); Hematocrit 27.5 % (36.0-46.0); Immature Granulocytes Auto 0.32 Thou/mm3 (0.00-0.00); Lymphocytes # (Auto) 3.0 Thou/mm3 (1.0-4.8); Lymphocytes % (Auto) 16 % (10-50); Mean Corpuscular HGB Conc 31.6 g/dl (31.0-37.0); Mean Corpuscular Hemoglobin 24.2 pg (25.0-35.0); Mean Corpuscular Volume 77 fL (80-100); Monocytes # (Auto) 0.8 Thou/mm3 (0.0-0.8); Monocytes % (Auto) 4 % (0-12); Neutrophils # (Auto) 14.4 Thou/mm3 (1.8-7.7); Neutrophils % (Auto) 77 % (37-80); Nucleated Red Blood Cell # 0.00 Thou/mm3 (0.00-0.00); Nucleated Red Blood Cell % 0 /100 WBC (0); Platelet Count 199 Thou/mm3 (140-440); RDW Standard Deviation 41.4 fL (36.4-46.3); Red Blood Count 3.59 Miln/mm3 (4.00-5.20); White Blood Count 18.6 Thou/mm3 (3.6-11.0)
[2025-02-25 05:14] LABS: Hemoglobin 8.7 g/dL (12.0-16.0)
--- NOTE | 2025-02-25 06:14 | PD.LDPPPRG ---
Subjective Subjective Interval history: Denies headache, blurred vision, epigastric pain. Patient complains of low back pain. When I went in to see her she was kneeling on the floor by the bed. Patient has been up to void no dizziness. Baby is in the NICU Exam Vital Signs Temp Pulse Resp BP Pulse Ox O2 Del Method 98.1 F 80 13 133/66 H 98 Room Air 02/25/25 04:00 02/25/25 04:00 02/25/25 04:00 02/25/25 04:00 02/25/25 04:00 02/25/25 04:00 Narrative Exam Last blood pressure this morning at 4 was 133/66. Fundus firm below the umbilicus. Negative Homans' sign. 2+ DTRs. No swelling. Perineum is not swollen and healing. Small lochia Objective Labs 02/25/25 04:30 02/23/25 13:22 Labs: Laboratory Results - last 24 hr 02/24/25 02/25/25 20:29 04:30 WBC 23.4 H D 18.6 H RBC 3.85 L 3.59 L Hgb 9.3 L 8.7 L Hct 28.9 L 27.5 L MCV 75 L 77 L MCH 24.2 L 24.2 L MCHC 32.2 31.6 RDW Std Deviation 39.9 41.4 Plt Count 193 199 Neut % (Auto) 83 H 77 Lymph % (Auto) 11 16 [place] % (Auto) 5 4 Eos % (Auto) 0 0 Baso % (Auto) 0 0 Neut # (Auto) 19.3 H 14.4 H Lymph # (Auto) 2.6 3.0 [place] # (Auto) 1.1 H 0.8 Eos # (Auto) 0.0 0.1 Baso # (Auto) 0.1 0.0 Immature Gran # (Auto) 0.31 H 0.32 H Absolute Nucleated RBC 0.02 H 0.00 Immature Gran % 1 H 2 H Nucleated RBC % 0 0 Assessment & Plan Problem List (1) Gestational hypertension affecting sixth : Status: Acute (2) Diet controlled gestational diabetes mellitus (GDM) in third trimester: Status: Acute (3) Pre-eclampsia during in third trimester, antepartum: Status: Acute (4) Advanced maternal age (AMA) in : Status: Acute Assessment Comment Assessment comment: 24 hr pp, chronic hypertention Plan Comment Plan Comment: Continue labetalol 200 p.o. 3 times daily. Encourage ambulation and movement. Increase fluids. Tylenol ibuprofen for pain. We reviewed comfort measures for perineal laceration. Patient will be discharged home tomorrow with baby Time Spent With Patient Time: Total time spent is greater than 50% in coordination of care (as documented) at patient's floor/unit and/or counseling patient:
[2025-02-25] MEDS: LABETALOL 100 MG TABLET 200 MG PO ×3 (06:29→21:45)
[2025-02-25] MEDS: ACETAMINOPHEN 325 MG TABLET 650 MG PO ×3 (06:29→21:53)
[2025-02-25] MEDS: DOCUSATE SOD 100 MG CAPSULE PO ×2 (07:59→21:46)
[2025-02-26 03:22] VITALS: BP 153/82; PULSE 77; RESP 17; TEMP 36.4; O2SAT 97
[2025-02-26 05:39] LABS: Basophils # (Auto) 0.0 Thou/mm3 (0.0-0.2); Basophils % (Auto) 0 % (0-2.5); Eosinophils # (Auto) 0.1 Thou/mm3 (0.0-0.5); Eosinophils % (Auto) 1 % (0-10); Hematocrit 26.3 % (36.0-46.0); Immature Granulocytes Auto 0.26 Thou/mm3 (0.00-0.00); Lymphocytes # (Auto) 2.8 Thou/mm3 (1.0-4.8); Lymphocytes % (Auto) 23 % (10-50); Mean Corpuscular HGB Conc 30.8 g/dl (31.0-37.0); Mean Corpuscular Hemoglobin 24.0 pg (25.0-35.0); Mean Corpuscular Volume 78 fL (80-100); Monocytes # (Auto) 0.6 Thou/mm3 (0.0-0.8); Monocytes % (Auto) 5 % (0-12); Neutrophils # (Auto) 8.1 Thou/mm3 (1.8-7.7); Neutrophils % (Auto) 68 % (37-80); Nucleated Red Blood Cell # 0.00 Thou/mm3 (0.00-0.00); Nucleated Red Blood Cell % 0 /100 WBC (0); Platelet Count 200 Thou/mm3 (140-440); RDW Standard Deviation 42.3 fL (36.4-46.3); Red Blood Count 3.38 Miln/mm3 (4.00-5.20); White Blood Count 11.9 Thou/mm3 (3.6-11.0)
[2025-02-26 05:53] LABS: Hemoglobin 8.1 g/dL (12.0-16.0)
[2025-02-26 05:59] VITALS: BP 151/86; PULSE 73
[2025-02-26] MEDS: LABETALOL 100 MG TABLET 200 MG PO (05:59)
[2025-02-26] MEDS: BENZO/LANO/ALOE (Dermoplast) 60 GM CAN 1 SPRAY TOP (06:14)
[2025-02-26] MEDS: Hydrocortisone Cr 1% 30 GM TUBE TOP (06:14)
[2025-02-26] MEDS: IBUPROFEN TAB 400 MG TABLET 800 MG PO (07:27)
[2025-02-26] MEDS: DOCUSATE SOD 100 MG CAPSULE PO (07:27)
[2025-02-26 08:00] VITALS: BP 131/74; PULSE 74; RESP 16; TEMP 36.7; O2SAT 98
--- NOTE | 2025-02-26 08:26 | PD.LDPPPRG ---
Subjective Subjective Interval history: No complaints of pain. No dizziness. Patient is going to the nursery to see baby. Bonding and breast-feeding. Denies headache. Denies visual changes denies epigastric pain Exam Vital Signs Temp Pulse Resp BP Pulse Ox O2 Del Method 98.0 F 74 16 131/74 H 98 Room Air 02/26/25 08:00 02/26/25 08:00 02/26/25 08:00 02/26/25 08:00 02/26/25 08:00 02/26/25 08:00 Narrative Exam Vital signs are stable. Blood pressure 05[birth year]30/1975. Normal heart rate and rhythm. Lungs are clear. Abdomen is soft. Uterus is to below umbilicus. Perineum intact. No swelling. No signs of infection. Small lochia. Negative Homans' sign. 2+ DTRs patient has a moderate-sized hemorrhoid. No inflammation Objective Labs 02/26/25 04:48 02/23/25 13:22 Labs: Laboratory Results - last 24 hr 02/26/25 04:48 WBC 11.9 H D RBC 3.38 L Hgb 8.1 L Hct 26.3 L MCV 78 L MCH 24.0 L MCHC 30.8 L RDW Std Deviation 42.3 Plt Count 200 Neut % (Auto) 68 Lymph % (Auto) 23 [place] % (Auto) 5 Eos % (Auto) 1 Baso % (Auto) 0 Neut # (Auto) 8.1 H Lymph # (Auto) 2.8 [place] # (Auto) 0.6 Eos # (Auto) 0.1 Baso # (Auto) 0.0 Immature Gran # (Auto) 0.26 H Absolute Nucleated RBC 0.00 Immature Gran % 2 H Nucleated RBC % 0 Assessment & Plan Problem List (1) Gestational hypertension affecting sixth : Status: Acute (2) Diet controlled gestational diabetes mellitus (GDM) in third trimester: Status: Acute (3) Pre-eclampsia during in third trimester, antepartum: Status: Acute (4) Advanced maternal age (AMA) in : Status: Acute Assessment Comment Assessment comment: 48hr pp Plan Comment Plan Comment: Patient discharged today. She will continue labetalol 200 3 times daily. Continue vitamins and iron. Proctosol HC to be used for hemorrhoid pain every 4-6 hours. And Colace 100 p.o. twice daily x 3 days. Discussed comfort measures for her perineal laceration. We reviewed ER precautions and parameters. Reviewed PIH signs and symptoms and worsening signs and symptoms. Discussed signs symptoms of infection return in a week for visit Time Spent With Patient Time: Total time spent is greater than 50% in coordination of care (as documented) at patient's floor/unit and/or counseling patient:
--- NOTE | 2025-02-26 08:29 | PD.LDDS ---
DS: Providers Provider Date of admission: 02/23/25 16:42 Primary care physician: Physician No Primary/Family Admitting Provider: Laura Harvey [facility] ([facility]) Attending Provider on Admission: Lo Matta CNM Consults: 02/24/25 12:02 Referral Routine Comment: Attending Provider on DC: Lo Matta CNM Discharging Provider: Lo Matta CNM DS: Diagnosis Problem List Completed Was Problem List Reviewed/Reconciled?: Yes Summary/Hosp Course Brief History: The patient is a 34-year-old -0-2-3 at 34-3/7 or 35 4/7 weeks based on two EDCs. Pt was given an early EDC of 03/26/25 at [facility]. This would put her at 35-4/7 weeks. They never did an ultrasound. At some point, patient was given an EDC of 04/03/2025 which which put her at 34-3/[address] weeks [address] she is admitted with weeks hypertension. She was admitte 05/21 and discharged 02/20. She presented today for scheduled NST JEUSSITA with labs. Patient's blood pressures were elevated and her UPCR ratio was 0.94 which corresponds to a 24-hour urine of 1.2. The patient had blood pressures in the 150s to 160s over 70s. Other preeclamptic labs are normal. Patient cervical exam is 2/ 50/-3 vertex. JESUSITA is good. Patient is admitted for induction of labor for preeclampsia. Plan: Cytotec. Had 2 PO doses of cytotec Ampicillin now for unknown GBBS Had epidural placed. Blood pressures under good control. Exam and AROM at 0645 Peripartum Data Delivery Method: Normal Vaginal Delivery Episiotomy Description: None Laceration Description: yes (1st perineal) complications: none Time Spent with Patient Time attestation: Total time spent providing and/or coordinating discharge services: Exam Vital Signs Temp Pulse Resp BP Pulse Ox O2 Del Method 98.0 F 74 16 131/74 H 98 Room Air 02/26/25 08:00 02/26/25 08:00 02/26/25 08:00 02/26/25 08:00 02/26/25 08:00 02/26/25 08:00 Discharge Plan Plan Patient Disposition: HOME (Self Care) Prescriptions/Referrals Prescriptions/Med Rec: New labetalol 200 mg tablet 200 mg PO TID Qty: 60 1RF docusate sodium [Colace] 100 mg capsule 100 mg PO BID Qty: 10 1RF hydrocortisone [Proctosol HC] 2.5 % cream with perineal applicator [address] QDAY PRN (Reason: hemorrhoids) Qty: 30 1RF No Action (DME) blood-glucose meter Kit See Rx Instructions .MEDSUPPLY Qty: 1 0RF Rx Instructions: As directed (DME) Blood Glucose Test Strip See Rx Instructions .MEDSUPPLY Qty: 10 0RF Rx Instructions: As directed (DME) lancets Misc See Rx Instructions .MEDSUPPLY Qty: 100 0RF Rx Instructions: As directed (DME) Blood Glucose Test Strip See Rx Instructions .MEDSUPPLY Qty: 50 3RF Rx Instructions: As directed (DME) lancets Misc See Rx Instructions .MEDSUPPLY Qty: 100 3RF Rx Instructions: As directed Classic 28 mg iron- 800 mcg tablet 1 tab PO QDAY Patient Comments: TAKE 1 TABLET BY MOUTH EVERY DAY labetalol 100 mg Tablet 200 mg PO TID Qty: 60 0RF Referrals: No Primary/Family,Physician [Primary Care Provider] Patient/Caregiver Discharge Instructions Other Discharge Activity Instructions:: Follow up with Lo in 3 weeks Education Materials: After a Vaginal , Breast Care After , Incision Care After Vaginal Print Language: Setswana Activity Restrictions/Additional Instructions: Discharge home today. Patient may board if baby is held in the NICU. I discharge patient home on labetalol 200 3 times daily. She also was given Proctosol to use as needed for hemorrhoids. And Colace 100 p.o. twice daily x 5 days. Increase fluids and roughage. Discussed comfort measures for perineal laceration. I discussed signs symptoms of infection. Discussed ER precautions with parameters. Reviewed signs symptoms of worsening PIH like headache blurred vision epigastric pain. And we discussed danger signs symptoms. Return in a week for visit Stand Alone Forms: [employer] Award Info., Patient Portal Info Letter Discharge Order Discharge Orders: Discharge (Routine); Ordered 02/26/25 Ordered By: Lo Matta Planned Discharge Date 02/26/25
--- NOTE | 2025-02-26 14:56 | PC.SS ---
SS conducted bedside contact with the patient to address nursing referral indicating patient has a baby in nicu. Patient is Vietnamese speaking only. Blanking Press Operator present. Nursing wanted to verify patient had support. Patient confirmed she has family support and her eldest daughter will be helping her at home. SS introduced self and role. SS discussed with patient basis of referral.? Patient confirmed her nb is in nicu. Patient received care from Lo Matta NP. Patient was consistent with appointments. This is patient?s 4th child. Ages of other children are: 21, 15 and 10. , baby girl, Justyna Carter, was born via vaginal on 02/24/25. Patient plans on bottle feeding. Patient is aligned with WIC, [employer] and [employer]. Patient denies history of domestic violence, mental health or substance abuse. No history of CWS. FOB is not involved. Patient has all resources to include: car seat, infant clothing and supplies.? student services advisor provided resources to include:? [employer], Warm Line and community numbers. SS discussed in further detail emotional support and answered all questions appropriately. No further intervention required at this time, mental health social worker will be available to address any further concerns. SS updated bedside nurse.
== END 2025-02-26 09:33 | disposition home or self-care (01) | DRG 560 ==
LOC: S4S1 16:43 → S4SX 16:44 → S4NX 02-24 15:46
PROVIDERS: Admitting Provider Obstetrics & Gynecology; Referring Provider Obstetrics & Gynecology; Visit Provider Advanced Practice Midwife
DX: O14.93 Unspecified pre-eclampsia, third trimester (principal); Z3A.35 35 weeks gestation of pregnancy; O24.420 Gestational diabetes mellitus in childbirth, diet controlled; O87.2 Hemorrhoids in the puerperium; O70.1 Second degree perineal laceration during delivery; Z37.0 Single live birth
CPT/HCPCS: 36415; 59025; 76815; 80053; 81001; 82570; 84156; 84550; 85025; 85384; 85610; 85730; 86780; 86850; 86900; 86901; J0290; J0360; J2590; J2795; J3010; J3490; J7050; J7120; S0191; A9270; J1920